=== PATIENT | male | born 1960 | race Caucasian/White ===

== ENCOUNTER 2020-08-22 20:15 | Inpatient (IN) | payer BC ==
[2020-08-22] MEDS ORDERED: METHYLPREDNISOLONE 125 MG INJ ONE (21:18)
[2020-08-22] MEDS ORDERED: NA CHLORIDE 0.9% 1,000 ML ONE (21:18)
[2020-08-22 21:34] LABS: Absolute Lymphocytes (CBC) 0.7 K/uL (0.7-4.9); Basophils % 0.1 % (0-1.3); Hematocrit 41.4 % (39.6-49.0); Lymphocytes % 8.8 % (15.3-44.8); MPV 8.3 fL (7.6-11.3)
[2020-08-22 21:42] LABS: Protime INR 1.1
[2020-08-22 21:56] LABS: ALT/SGPT 90 U/L (12-78); AST/SGOT 77 U/L (15-37); Albumin 3.4 g/dL (3.4-5.0); Alkaline Phosphatase 59 U/L (45-117); BUN Blood Urea Nitrogen 35 mg/dL (7-18); Bicarbonate 23 mmol/L (21-32); Bilirubin Direct 0.2 mg/dL (0-0.2); Bilirubin Total 0.9 mg/dL (0.2-1.0); Ferritin 1630.1 ng/mL (26-388); Glucose Level 177 mg/dL (74-106); Potassium 3.5 mmol/L (3.5-5.1); Protein, Total 7.5 g/dL (6.4-8.2); Sodium Level 137 mmol/L (136-145); Troponin (Emerg Dept Use Only) < 0.02 ng/mL (0.0-0.045)
[2020-08-22 22:19] LABS: SARS-COV-2 RT PCR POSITIVE (NEGATIVE)
[2020-08-22] MEDS ORDERED: Levofloxacin 750mg IV 750 MG/150 ML BAG IV ONE (23:11)
--- NOTE | 2020-08-23 00:35 | ER ---
Nurse's Notes [facility] Name: Loyd Sanchez Age: 59 yrs Sex: Male : 1960 Arrival Date: 08/22/2020 Time: 20:27 Bed 17 Private MD: Diagnosis: Coronavirus infection, unspecified;Pneumonia, unspecified organism;Dyspnea, unspecified Presentation: 08/22 20:27 Chief complaint: EMS states: pt experiencing sob, cough weakness, malaise, body aches, zb and fever. tested covid postive 4 days ago. oxygen level in low 90's without NS. completed z pack yesterday as prophylactic pt received it from his primary physician. Coronavirus screen: Client presents with at least one sign or symptom that may indicate coronavirus-19. Standard/surgical mask placed on the client. Provider contacted for isolation considerations. Ebola Screen: No symptoms or risks identified at this time. Initial Sepsis Screen: Does the patient meet any 2 criteria? RR > 20 per min. No. Patient's initial sepsis screen is negative. Does the patient have a suspected source of infection? Yes: Other: possible covid. Risk Assessment: Do you want to hurt yourself or someone else? Patient reports no desire to harm self or others. Onset of symptoms was August 22, 2020. 20:27 Acuity: ANTHONY 3 zb 20:27 Method Of Arrival: EMS: [facility] zb Triage Assessment: 21:17 General: Appears in no apparent distress. uncomfortable, Behavior is calm, cooperative, zb appropriate for age, Reports fever for > 3 days, feeling ill for > 3 days, fatigue for >3 days, Denies chills. Pain: Denies pain. EENT: No signs and/or symptoms were reported regarding the EENT system. Neuro: Level of Consciousness is awake, alert, obeys commands, Oriented to person, place, time, situation. Cardiovascular: Heart tones S1 S2 present Capillary refill < 3 seconds in bilateral fingers Patient's skin is warm and dry. Pulses are all present. Rhythm is regular. Respiratory: Reports shortness of breath at rest cough that is non-productive. Respiratory: Airway is patent Respiratory effort is even, unlabored, Respiratory pattern is symmetrical, tachypnea Breath sounds are diminished in right middle lobe, left lower lobe and right lower lobe. GI: Abdomen is round non-distended, Bowel sounds present X 4 quads. Abd is soft and non tender X 4 quads. Reports diarrhea, nausea, pt reports loss of taste and smell. : No signs and/or symptoms were reported regarding the genitourinary system. Derm: Skin is intact, is healthy with good turgor, Skin is dry, Skin is flushed, Skin temperature is warm. Musculoskeletal: Circulation, motion, and sensation intact. Capillary refill < 3 seconds, in bilateral fingers. Range of motion:. Historical: - Allergies: 20:42 No Known Allergies; zb - Home Meds: 20:42 Vitamin C Oral [Active]; Zinc Sulfate Oral [Active]; melatonin 10 mg Oral cap [Active]; zb Xarelto oral oral [Active]; Pepcid Oral [Active]; zpack [Active]; Flovent Inhl [Active]; - PMHx: 20:42 Diabetes - NIDDM; Hypertension; zb - Immunization history:: Adult Immunizations up to date. - Social history:: Smoking status: Patient denies any tobacco usage or history of. - Family history:: not pertinent. - Hospitalizations: : No recent hospitalization is reported. Screenin:42 Abuse screen: Denies threats or abuse. Denies injuries from another. Nutritional zb screening: No deficits noted. Tuberculosis screening: No symptoms or risk factors identified. Fall Risk None identified. Assessment: 20:30 Reassessment: see triage note. zb 21:30 Reassessment: Patient appears in no apparent distress at this time. Patient and/or zb family updated on plan of care and expected duration. Pain level reassessed. Patient is alert, oriented x 3, equal unlabored respirations, skin warm/dry/pink. spoke to patient . notified of POC. pt appear calm. no c/o at this time. 22:30 Reassessment: Patient appears in no apparent distress at this time. Patient and/or zb family updated on plan of care and expected duration. Pain level reassessed. Patient is alert, oriented x 3, equal unlabored respirations, skin warm/dry/pink. pt resting. no c/o at this time. remains on 2L of oxygen via NC. 23:30 Reassessment: Patient appears in no apparent distress at this time. Patient and/or zb family updated on plan of care and expected duration. Pain level reassessed. Patient is alert, oriented x 3, equal unlabored respirations, skin warm/dry/pink. pt c/o dehydration and mouth dryness notified provider. cleared for PO water. water provided to patient. RR remain elevated. 08/23 01:47 Reassessment: Patient and/or family updated on plan of care and expected duration. Pain ll2 level reassessed. Patient is alert, oriented x 3, equal unlabored respirations, skin warm/dry/pink. 01:50 Reassessment: attempted to give report, advised that receiving nurse is currently on ll2 lunch and she would call back. 02:24 Reassessment: Patient and/or family updated on plan of care and expected duration. Pain ll2 level reassessed. Patient is alert, oriented x 3, equal unlabored respirations, skin warm/dry/pink. report given to SILVERIO chow. Vital Signs: 08/22 20:27 BP 133 / 83; Pulse 96; Resp 27; Temp 100.1; Pulse Ox 97% 2 lpm ; Weight 97.98 kg; zb Height 5 ft. 9 in. (175.26 cm); 21:17 Pulse Ox 90% on R/A; zb 21:30 BP 151 / 86; Pulse 92; Resp 24; Pulse Ox 98% 2 lpm ; zb 22:30 BP 145 / 75; Pulse 83; Resp 25; Pulse Ox 95% on 2 lpm NC; zb 23:30 BP 145 / 75; Pulse 84; Resp 26; Pulse Ox 95% 2 lpm ; zb 08/23 00:30 BP 140 / 79; Pulse 81; Resp 32; Pulse Ox 95% on 2 lpm NC; ll2 01:49 BP 136 / 74; Pulse 75; Resp 30; Pulse Ox 97% on 2 lpm NC; ll2 08/22 20:27 Body Mass Index 31.90 (97.98 kg, 175.26 cm) zb ED Course: 08/22 20:27 Patient arrived in ED. zb 20:27 Andi Marr MD is Attending Physician. rn 20:27 Carolin Ochoa RN is Primary Nurse. zb 20:35 Triage completed. zb 20:42 Patient has correct armband on for positive identification. Fall risk band placed. zb Placed in gown. Side rails up X 1. Side rails up X2. pvc monitor on. Pulse ox on. NIBP on. Door closed. Noise minimized. Warm blanket given. 20:43 Antipyretic given from triage as ordered by the ER provider. zb 21:03 Inserted saline lock: 20 gauge in left forearm, using aseptic technique. Blood ca1 collected. 21:03 Initial lab(s) drawn, by me, sent to lab. First set of blood cultures drawn by me, ca1 COVID swab sent to lab. Flu and/or RSV swab sent to lab. 21:13 CXR XRAY In Process Unspecified. EDMS 23:23 CT Chest For PE Angio In Process Unspecified. EDMS 08/23 00:13 Tried to initiate transfer at [facility] with Teodora. She stated that they were at capacity tt3 at all campuses but still took pt information. Information was passed on to Dr. Marr. 00:33 Vaibhav Rivero DO is Hospitalizing Provider. rn 02:27 No provider procedures requiring assistance completed. Patient admitted, IV remains in ll2 place. Administered Medications: 08/22 21:20 Drug: SOLU-Medrol 125 mg Route: IVP; Site: left forearm; zb 23:54 Follow up: Response: No adverse reaction zb 21:21 Drug: NS 0.9% 1000 ml Route: IV; Rate: 1000 ml; Site: left forearm; zb 23:54 Follow up: Response: No adverse reaction; IV Status: Completed infusion; IV Intake: zb 1000ml 23:45 Drug: LevaQUIN 750 mg Volume: 150 ml; Route: IVPB; Infused Over: 90 mins; Site: left zb forearm; Intake: 23:54 IV: 1000ml; Total: 1000ml. zb Outcome: 08/23 00:34 Decision to Hospitalize by Provider. rn 02:27 Admitted to Med/surg accompanied by tech, via stretcher, with oxygen, Report called to ll2 silverio chow 02:28 Condition: stable ll2 02:28 Instructed on the need for admit. 02:28 Patient left the ED. ll2 Signatures: Dispatcher [employer] EDMS Andi Marr MD MD rn Acob, Deysi RN RN ca1 Keren Latham RN RN ll2 Flaquito Wolf tt3 Carolin Ochoa RN RN zb Corrections: (The following items were deleted from the chart) 08/22 21:17 20:27 BP 133 / 83; Pulse 96bpm; Resp 23bpm; Pulse Ox 97% 2 lpm; Temp 100.1F; 97.98 kg; zb Height 5 ft. 9 in.; BMI: 31.9; zb 21:58 21:17 Respiratory: Airway is patent Respiratory effort is even, unlabored, Respiratory zb pattern is symmetrical, tachypnea zb 08/23 01:49 00:30 BP 140 / 79; Pulse 81bpm; Resp 32bpm; Pulse Ox 95% RA; ll2 ll2
--- NOTE | 2020-08-23 00:35 | EDPHYS ---
Physician Documentation [facility] Name: Loyd Sanchez Age: 59 yrs Sex: Male : 1960 Arrival Date: 08/22/2020 Time: 20:27 Bed 17 Private MD: ED Physician Andi Marr HPI: 08/22 20:49 This 59 yrs old Male presents to ER via EMS with complaints of cough, sob, rn weakness. 20:49 The patient has shortness of breath at rest, with light activity. Onset: The rn symptoms/episode began/occurred 8 day(s) ago. Duration: The symptoms are continuous. The patient's shortness of breath is aggravated by coughing, is alleviated by nothing. Associated signs and symptoms: Pertinent positives: productive cough, fever, Pertinent negatives: hemoptysis, loss of consciousness. Severity of symptoms: At their worst the symptoms were moderate in the emergency department the symptoms are unchanged. The patient has not experienced similar symptoms in the past. The patient has been recently seen by a physician:. Reports 8 days ago felt sick, seen by pcp, told likely has COVID, tested and was positive, patient presumed positive, got worse recently with cough and sob. EMS reports O2 90%, improved with albuterol treatment. Already on xarelto, although patient does not know why. Is diabetic. Reports not eating or drinking lately due to anorexia and loss of taste/smell. Feels dehydrated. Given IVF by EMS. . Historical: - Allergies: 20:42 No Known Allergies; zb - Home Meds: 20:42 Vitamin C Oral [Active]; Zinc Sulfate Oral [Active]; melatonin 10 mg Oral cap [Active]; zb Xarelto oral oral [Active]; Pepcid Oral [Active]; zpack [Active]; Flovent Inhl [Active]; - PMHx: 20:42 Diabetes - NIDDM; Hypertension; zb - Immunization history:: Adult Immunizations up to date. - Social history:: Smoking status: Patient denies any tobacco usage or history of. - Family history:: not pertinent. - Hospitalizations: : No recent hospitalization is reported. ROS: 20:49 Constitutional: + fever and chills Eyes: Negative for injury, pain, redness, and internal grinder tender, Cardiovascular: Negative for chest pain, palpitations, and edema, Respiratory: + sob and cough Abdomen/GI: Negative for abdominal pain, nausea, vomiting, diarrhea, and constipation, MS/Extremity: Negative for injury and deformity, Skin: Negative for injury, rash, and discoloration, Neuro: Negative for numbness, tingling, and seizure Exam: 20:49 Constitutional: This is a well developed, well nourished patient who is awake, alertm rn mild respiratory distress Head/Face: Normocephalic, atraumatic. Eyes: Pupils equal round and reactive to light, extra-ocular motions intact. Lids and lashes normal. Conjunctiva and sclera are non-icteric and not injected. Cornea within normal limits. Periorbital areas with no swelling, redness, or edema. ENT: dry MM, no stridor Cardiovascular: Regular rate and rhythm. No pulse deficits. Respiratory: + mild tachypnea, diminished at bases Abdomen/GI: Soft, non-tender Skin: Warm, dry MS/ Extremity: Pulses equal, no cyanosis. Neuro: Awake and alert, GCS 15 21:11 ECG was reviewed by the Attending Physician. rn Vital Signs: 20:27 BP 133 / 83; Pulse 96; Resp 27; Temp 100.1; Pulse Ox 97% 2 lpm ; Weight 97.98 kg; zb Height 5 ft. 9 in. (175.26 cm); 21:17 Pulse Ox 90% on R/A; zb 21:30 BP 151 / 86; Pulse 92; Resp 24; Pulse Ox 98% 2 lpm ; zb 22:30 BP 145 / 75; Pulse 83; Resp 25; Pulse Ox 95% on 2 lpm NC; zb 23:30 BP 145 / 75; Pulse 84; Resp 26; Pulse Ox 95% 2 lpm ; zb 08/23 00:30 BP 140 / 79; Pulse 81; Resp 32; Pulse Ox 95% on 2 lpm NC; ll2 01:49 BP 136 / 74; Pulse 75; Resp 30; Pulse Ox 97% on 2 lpm NC; ll2 08/22 20:27 Body Mass Index 31.90 (97.98 kg, 175.26 cm) zb MDM: 08/22 20:27 Patient medically screened. rn 21:07 ED course: Took course of abx this past week. . rn 08/23 00:28 Differential diagnosis: pneumonia, Pneumothorax pulmonary edema, Pulmonary Embolism rn HALIMA pneumonia. Data reviewed: vital signs, nurses notes, lab test result(s), EKG, radiologic studies, CT scan, plain films, and as a result, I will admit patient. Counseling: I had a detailed discussion with the patient and/or guardian regarding: the historical points, exam findings, and any diagnostic results supporting the discharge/admit diagnosis, lab results, radiology results, the need for further work-up and treatment in the hospital. Response to treatment: There is no appreciated change of the patient's symptoms at this time, and as a result, I will admit patient. Admission orders: after a detailed discussion of the patient's condition and case, the admit orders are written by me. ED course: Attempted transfer to [facility] per patient request due to insurance reasons and BCBS not accepted here, [facility] states at capacity and unable to celeste transfer. Notified patient of this and will admit to hospitalist service. . 08/22 20:29 Order name: LFT's; Complete Time: 21:58 rn 08/22 20:29 Order name: Blood Culture Adult (2) rn 08/22 20:29 Order name: BMP; Complete Time: :58 rn 08/22 20:29 Order name: C-Reactive Protein; Complete Time: :58 rn 08/22 20:29 Order name: CBC with Diff; Complete Time: 21:58 rn 08/22 20:29 Order name: D-Dimer; Complete Time: :58 rn 08/22 20:29 Order name: Ferritin; Complete Time: :58 rn 08/22 20:29 Order name: Lactate; Complete Time: 21:58 rn 08/22 20:29 Order name: Procalcitonin; Complete Time: 21:58 rn 08/22 20:29 Order name: PT-INR; Complete Time: :58 rn 08/22 20:29 Order name: Ptt, Activated; Complete Time: :58 rn 08/22 20:29 Order name: Troponin (emerg Dept Use Only); Complete Time: 21:58 rn 08/22 20:29 Order name: CXR XRAY rn 08/22 21:49 Order name: CT Chest For PE Angio rn 08/22 22:20 Order name: COVID-19/FLU A+B; Complete Time: 22:23 EDMS 08/23 01:43 Order name: Basic Metabolic Panel EDMS 08/23 01:43 Order name: Basic Metabolic Panel EDMS 08/23 01:43 Order name: C-Reactive Protein EDMS 08/23 01:43 Order name: C-Reactive Protein EDMS 08/23 01:43 Order name: CBC with Automated Diff EDMS 08/23 01:43 Order name: CBC with Automated Diff EDMS 08/23 01:43 Order name: Ferritin EDMS 08/23 01:43 Order name: Ferritin EDMS 08/23 01:43 Order name: Hemoglobin A1c EDMS 08/23 01:43 Order name: Hemoglobin A1c EDMS 08/23 01:43 Order name: Magnesium EDMS 08/23 01:43 Order name: Magnesium EDMS 08/23 02:16 Order name: Lactate Sepsis 2 HR Follow-up EDMS 08/22 20:29 Order name: EKG; Complete Time: 20:30 rn 08/22 20:29 Order name: Cardiac monitoring; Complete Time: 20:43 rn 08/22 20:29 Order name: Droplet/Contact Precautions; Complete Time: 20:43 rn 08/22 20:29 Order name: EKG - Nurse/Tech; Complete Time: 20:57 rn 08/22 20:29 Order name: IV Start; Complete Time: 20:57 rn 08/22 20:29 Order name: Labs collected and sent; Complete Time: 20:57 rn 08/22 20:29 Order name: O2 Per Protocol; Complete Time: 20:43 rn 08/22 20:29 Order name: O2 Sat Monitoring; Complete Time: 20:43 rn 08/23 01:43 Order name: CONS Physician Consult EDFL EC/05 21:11 Rate is 92 beats/min. Rhythm is regular. QRS Mitchell is Normal. MI interval is normal. QRS rn interval is normal. QT interval is normal. No Q waves. T waves are Normal. No ST changes noted. Clinical impression: Normal sinus rhythm, no ischemia. Interpreted by me. Reviewed by me. Administered Medications: 21:20 Drug: SOLU-Medrol 125 mg Route: IVP; Site: left forearm; zb 23:54 Follow up: Response: No adverse reaction zb 21:21 Drug: NS 0.9% 1000 ml Route: IV; Rate: 1000 ml; Site: left forearm; zb 23:54 Follow up: Response: No adverse reaction; IV Status: Completed infusion; IV Intake: zb 1000ml 23:45 Drug: LevaQUIN 750 mg Volume: 150 ml; Route: IVPB; Infused Over: 90 mins; Site: left zb forearm; Disposition: 08/23/20 00:34 Hospitalization ordered by Vaibhav Rivero for Inpatient Admission. Preliminary diagnosis are Coronavirus infection, unspecified, Pneumonia, unspecified organism, Dyspnea, unspecified. - Bed requested for Telemetry/MedSurg (Inpatient). - Status is Inpatient Admission. ll2 - Condition is Stable. - Problem is new. - Symptoms are unchanged. Signatures: Dispatcher [employer] EDFL Susanna Doshi RN RN Andi Marr MD MD rn Linscombe, Lacie, RN RN ll2 Carolin Ochoa RN RN zpranav Corrections: (The following items were deleted from the chart) 20:57 20:49 Constitutional: + fever and chills Eyes: Negative for injury, pain, redness, and internal grinder tender, Cardiovascular: Negative for chest pain, palpitations, and edema, Respiratory: Negative for shortness of breath, cough, wheezing, and pleuritic chest pain, Abdomen/GI: Negative for abdominal pain, nausea, vomiting, diarrhea, and constipation, MS/Extremity: Negative for injury and deformity, Skin: Negative for injury, rash, and discoloration, Neuro: Negative for numbness, tingling, and seizure rn 21:33 20:30 CORONAVIRUS+MR.LAB.BRZ ordered. [facility] EDFL 21:33 20:30 Influenza Screen (A \T\ B)+BA.LAB.BRZ ordered. [facility] 08/23 01:47 00:34 Hospitalization Ordered by Vaibhav Rivero DO for Inpatient Admission. Preliminary mw diagnosis is Coronavirus infection, unspecified; Pneumonia, unspecified organism; Dyspnea, unspecified. Bed requested for Telemetry/MedSurg (Inpatient). Status is Inpatient Admission. Condition is Stable. Problem is new. Symptoms are unchanged. rn 02:28 01:47 08/23/2020 00:34 Hospitalization Ordered by Vaibhav Rivero DO for Inpatient ll2 Admission. Preliminary diagnosis is Coronavirus infection, unspecified; Pneumonia, unspecified organism; Dyspnea, unspecified. Bed requested for Telemetry/MedSurg (Inpatient). Status is Inpatient Admission. Condition is Stable. Problem is new. Symptoms are unchanged. mw
[2020-08-23] MEDS ORDERED: ONDANSETRON 4 MG/2 ML VIAL IV PRN (01:40)
[2020-08-23] MEDS ORDERED: ACETAMINOPHEN 500 MG TAB PO PRN (01:40)
--- NOTE | 2020-08-23 02:25 | P.HP ---
Certification for Inpatient Patient admitted to: Observation With expected LOS: <2 Midnights Patient will require the following post-hospital care: None Practitioner: I am a practitioner with admitting privileges, knowledge of patient current condition, hospital course, and medical plan of care. Services: Services provided to patient in accordance with Admission requirements found in Title 42 Section 412.3 of the Code of Federal Regulations <Attila Carrera - Last Filed: 08/23/20 02:21> Patient admitted to: Observation <Vaibhav Rivero - Last Filed: 08/23/20 07:50> Patient History Date of Service: 08/23/20 Primary Care Provider: Dr. Keys Reason for admission: COVID Pneumonia History of Present Illness: 59-year-old male with history of diabetes mellitus type 2, hypertension, hyperlipidemia presents the emergency department for 3 days of shortness of breath. Patient was evaluated in the emergency room and up testing positive for COVID, patient unaware of where he contracted the illness. Patient tachypneic with respiratory rate around 30s and oxygen saturations around 90% on room air. Initial CRP level 75, ferritin 1630. Patient given IV steroids in the emergency department, ED provider wishes to admit patient for further evaluation and management. Patient had called EMS for shortness of breath and requested that he was taken to a different facility as this facility is no longer accepting [facility], other nearby facilities were on diversion and would not accept patient. Transfer to alternative acute care facilities was attempted in the emergency department but no beds were available, for that reason patient will need to be admitted to our facility. 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 - Family History Family History: Reviewed- Non-Contributory - Social History Smoking Status: Never smoker Alcohol use: Yes CD- Drugs: No Caffeine use: No Place of Residence: Home <Attila Carrera - Last Filed: 08/23/20 02:21> Date of Service: 08/23/20 Home medications list reviewed: No - Past Medical/Surgical History Diabetic: Yes <Vaibhav Rivero - Last Filed: 08/23/20 07:50> Allergies No Known Allergies Allergy (Verified 08/23/20 04:28) Review of Systems 10-point ROS is otherwise unremarkable General: Weakness, Malaise Respiratory: Cough, Dry, Shortness of Breath <Attila Carrera - Last Filed: 08/23/20 02:21> Physical Examination - Physical Exam General: Alert, In no apparent distress HEENT: Atraumatic, PERRLA, Mucous membr. moist/pink Neck: Supple, 2+ carotid pulse no bruit, No LAD Respiratory: Clear to auscultation bilaterally, Normal air movement Cardiovascular: Regular rate/rhythm, Normal S1 S2 Gastrointestinal: Normal bowel sounds, No tenderness Musculoskeletal: No tenderness Integumentary: No rashes Neurological: Normal speech, Normal strength at 5/5 x4 extr, Normal tone, Normal affect - Studies Laboratory Data (last 24 hrs) 08/22/20 21:01: PT 13.0 H, INR 1.10, APTT 27.8 08/22/20 21:01: WBC 7.4, Hgb 14.5, Hct 41.4, Plt Count 210 08/22/20 21:01: Sodium 137, Potassium 3.5, BUN 35 H, Creatinine 1.34 H, Glucose 177 H, Total Bilirubin 0.9, AST 77 H, ALT 90 H, Alkaline Phosphatase 59 <Attila Carrera - Last Filed: 08/23/20 02:21> - Studies Laboratory Data (last 24 hrs) 08/22/20 21:01: PT 13.0 H, INR 1.10, APTT 27.8 08/22/20 21:01: WBC 7.4, Hgb 14.5, Hct 41.4, Plt Count 210 08/22/20 21:01: Sodium 137, Potassium 3.5, BUN 35 H, Creatinine 1.34 H, Glucose 177 H, Total Bilirubin 0.9, AST 77 H, ALT 90 H, Alkaline Phosphatase 59 <Vaibhav Rivero - Last Filed: 08/23/20 07:50> Assessment and Plan - Plan Assessment COVID pneumonia with hypoxia Diabetes mellitus type 2 Hypertension Hyperlipidemia Plan COVID pneumonia with hypoxia: Trends CRP levels, IV steroids, oral supplements. Pulmonology consult in place, supplemental oxygen as needed, iron daily room air saturations. DVT prophylaxis with Lovenox 40 mg subcutaneous once daily. Diabetes mellitus type 2: A.c. HS Accu-Cheks, sliding scale insulin therapy. Hypertension: Obtain and continue home medications. Hyperlipidemia: Obtain and continue home medications. Discharge Plan: Home Plan to discharge in: 24 Hours - Advance Directives Does patient have a Living Will: No Does patient have a Durable POA for Healthcare: No - Code Status/Comfort Care Code Status Assessed: Yes (Full code) Critical Care: No Time Spent Managing Pts Care (In Minutes): 55 <Attila Carrera - Last Filed: 08/23/20 02:21> - Plan Case discussed in detail with nurse practitioner. Agree with plan of care. Recheck ferritin and CRP. Continue IV steroids in oral supplements. Patient on DVT prophylaxis. Will discuss with pulmonology. Anticipate improvement over the next 24 hr with possible discharge as early as tomorrow. Please see note for details. <Vaibhav Rivero - Last Filed: 08/23/20 07:50>
[2020-08-23] MEDS: PANTOPRAZOLE 40MG TABLET PO SCH (06:32)
[2020-08-23] MEDS ORDERED: BENZONATATE 100 MG CAP PO PRN (07:53)
--- NOTE | 2020-08-23 07:53 | P.PN ---
Subjective Date of Service: 08/23/20 Primary Care Provider: Dr. Keys Chief Complaint: COVID Pneumonia Subjective: Improving (Still with mild tachypnea. Patient on the 2 L per nasal cannula.) Physical Examination - Vital Signs Temperature: 98.3 F Blood Pressure: 149/75 Pulse: 77 Respirations: 20 Pulse Ox (%): 95 - Physical Exam General: Alert, In no apparent distress, Oriented x3, Cooperative HEENT: Atraumatic Neck: Supple Respiratory: Other (Patient on 2 L per nasal cannula) Cardiovascular: Normal pulses, Regular rate/rhythm Gastrointestinal: No guarding Neurological: Normal speech, Normal strength at 5/5 x4 extr, Normal tone, Normal affect - Studies Laboratory Data (last 24 hrs) 08/22/20 21:01: PT 13.0 H, INR 1.10, APTT 27.8 08/22/20 21:01: WBC 7.4, Hgb 14.5, Hct 41.4, Plt Count 210 08/22/20 21:01: Sodium 137, Potassium 3.5, BUN 35 H, Creatinine 1.34 H, Glucose 177 H, Total Bilirubin 0.9, AST 77 H, ALT 90 H, Alkaline Phosphatase 59 Medications List Reviewed: Yes Assessment & Plan Discharge Plan: Home Plan to discharge in: 24 Hours Physician Review Additional Text: Assessment Bilateral COVID 19 pneumonia with hypoxia Diabetes mellitus type 2 Hypertension Hyperlipidemia Acute renal insufficiency likely mild dehydration Plan Bilateral COVID 19 pneumonia with hypoxia: Patient appears improved. Continue IV steroids and supplementation. Patient on 2 L per nasal cannula. Ferritin and CRP reviewed. Recheck ferritin and CRP today. Will discuss with pulmonology. Anticipate improvement over the next 24 hr with possible discharge tomorrow on home oxygen. Patient on DVT prophylaxis. Continue monitor closely. Await recommendations by pulmonology. Diabetes mellitus type 2: A.c. HS Accu-Cheks, sliding scale insulin therapy in place. Will check A1c. Hypertension: Restart home medication Hyperlipidemia: Restart home medication Acute renal insufficiency likely mild dehydration: Encourage oral intake. Will monitor lab closely. Time Spent Managing Pts Care (In Minutes): 55
[2020-08-23] MEDS ORDERED: INFLUENZA VACCINE (for 3y+) 0.5 ML DOSE IMVAC ONE (08:00)
--- NOTE | 2020-08-23 08:03 | RAD REPORT ---
EXAM DESCRIPTION: RAD - Chest Single View - 08/22/2020 9:12 pm CLINICAL HISTORY: possible COVID;Cough;Dyspnea COMPARISON: Portable February 2020 TECHNIQUE: AP portable chest image was obtained 08/22/2020 9:12 pm . FINDINGS: Lung volumes are very low. Bilateral interstitial and alveolar opacities are present worse on the left. Pattern is consistent with a COVID-19 pneumonia. Heart and vasculature are normal. No m easurable pleural effusion and no pneumothorax. No acute bony abnormality seen. No acute aortic findi ngs suspected. IMPRESSION: Significant bilateral airspace opacification, left greater than right. Pattern is consis tent with COVID-19 pneumonia.
[2020-08-23 08:33] LABS: C-Reactive Protein 93.7 mg/L (<3.00); Ferritin 1668.2 ng/mL (26-388)
[2020-08-23] MEDS: INSULIN -REGULAR HUMAN 50 UNIT/0.5 ML ML SQ SCH ×4 (08:46→21:00)
[2020-08-23] MEDS: MULTIVIT W/ MINERAL TAB PO SCH (08:47)
[2020-08-23] MEDS: ASPIRIN EC 81 MG TAB PO SCH (08:47)
[2020-08-23] MEDS: LOSARTAN POTASSIUM 50 MG TABLET PO SCH (08:47)
[2020-08-23] MEDS: VITAMIN D 1000 UNIT TAB PO SCH (08:47)
[2020-08-23] MEDS: icosapent ethyL 1 GM CAP PO SCH ×2 (08:48→20:00)
[2020-08-23] MEDS: METOPROLOL TAR 25 MG TAB PO SCH (08:48)
[2020-08-23] MEDS: METHYLPREDNISOLONE 40 MG INJ IV SCH ×2 (08:48→17:16)
[2020-08-23] MEDS: ENOXAPARIN 40 MG/0.4 ML SQ SCH (08:48)
[2020-08-23] MEDS: MAGNESIUM OXIDE 400 MG TAB PO SCH (08:49)
[2020-08-23] MEDS: hydroCHLOROthiazide 25 MG TAB PO SCH (08:49)
[2020-08-23] MEDS: ASCORBIC ACID 500 MG TABLET PO SCH ×3 (08:49→20:00)
[2020-08-23] MEDS: ZINC SULFATE 220 MG CAP PO SCH (08:55)
[2020-08-23] MEDS ORDERED: POTASSIUM CL SA 10 MEQ TAB PO ONE (09:00)
--- NOTE | 2020-08-23 11:42 | RAD REPORT ---
EXAM DESCRIPTION: CT - Chest For Pe Angio - 08/23/2020 6:35 am CLINICAL HISTORY: 59 years Male sob, dyspnea, COVID COMPARISON: None. TECHNIQUE: Contiguous axial images obtained through the chest during the infusion of IV contrast. Re formatted images obtained. MIP reformatted images obtained. This exam was performed according to our department optimization program which includes automated exp osure control, adjustment of the mA and/or kv according to patient size and/or use of iterative recon struction technique. FINDINGS: The spleen is enlarged measuring 16 cm in length. Small hiatal hernia. No pericardial effusion. There are a couple of slightly prominent mediastinal lymph nodes. No evidence for thoracic aortic dissection. No pulmonary emboli are identified. There are fairly diffuse patchy groundglass infiltrates consistent with covid pneumonia. No pleural e ffusions. No pneumothorax. 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 There are m ild degenerative changes of the left shoulder and in the spine. There is mild compression fracture de formity at T8 which appears chronic. IMPRESSION: No pulmonary emboli are identified. There are diffuse patchy groundglass infiltrates consistent with covid pneumonia. The spleen is enlarged. Electronically signed by: Miguel Angel Alexis MD 08/23/2020 12:05 AM COMMUNICATION MANAGER Due to temporary technical issues with the PACS/Fluency reporting system, reports are being signed by the in house radiologist without review as a courtesy to ensure prompt reporting. The interpreting r adiologist is fully responsible for the content of the report.
--- NOTE | 2020-08-23 17:33 | EKG ---
Test Date: 2020-08-22 Test Time: 20:51:46 Reptile Farmer: BAKARI MEASUREMENT RESULTS: Intervals: Rate: 92 TX: 144 QRSD: 98 QT: 354 QTc: 437 Addison: P: 49 TX: 144 QRS: -25 T: 49 INTERPRETIVE STATEMENTS: Normal sinus rhythm Possible Left atrial enlargement Borderline ECG No previous ECG available for comparison Electronically Signed On 08-23-20 17:31:42 ESTHETICIAN AND MANAGER [employer]PA by Sourav Higgins
[2020-08-23] MEDS: DIPHENOX/ATROP SULF 1 TAB PO PRN (18:22)
[2020-08-23] MEDS: GLUCERNA SHAKE 237 ML CAN PO SCH (20:00)
[2020-08-23] MEDS: LACTOBACILLUS/ACIDOPHILUS TAB PO SCH (20:00)
[2020-08-23] MEDS: ATORVASTATIN 40 MG TAB PO SCH (20:00)
[2020-08-24] MEDS: METHYLPREDNISOLONE 40 MG INJ IV SCH ×3 (00:08→16:45)
[2020-08-24 03:47] LABS: Absolute Lymphocytes (CBC) 0.9 K/uL (0.7-4.9); Basophils % 0.1 % (0-1.3); Hematocrit 39.5 % (39.6-49.0); Lymphocytes % 8.3 % (15.3-44.8); MPV 8.4 fL (7.6-11.3); RBC Red Blood Cell Count 4.79 M/uL (4.33-5.43)
[2020-08-24 04:20] LABS: Magnesium 2.3 mg/dL (1.8-2.4); Potassium 3.8 mmol/L (3.5-5.1)
[2020-08-24] MEDS ORDERED: POTASSIUM CL SA 10 MEQ TAB PO ONE (04:23)
[2020-08-24] MEDS: PANTOPRAZOLE 40MG TABLET PO SCH (05:10)
[2020-08-24 07:01] LABS: C-Reactive Protein 53.4 mg/L (<3.00); Ferritin 1929.9 ng/mL (26-388)
[2020-08-24 07:44] LABS: Blood Morphology Comment NOT SEEN (NOT SEEN); Platelet Estimate ADEQ
[2020-08-24] MEDS: MAGNESIUM OXIDE 400 MG TAB PO SCH (09:00)
[2020-08-24] MEDS: ZINC SULFATE 220 MG CAP PO SCH (09:04)
[2020-08-24] MEDS: ASCORBIC ACID 500 MG TABLET PO SCH ×3 (09:04→20:33)
[2020-08-24] MEDS: VITAMIN D 1000 UNIT TAB PO SCH (09:04)
[2020-08-24] MEDS: ASPIRIN EC 81 MG TAB PO SCH (09:04)
[2020-08-24] MEDS: LACTOBACILLUS/ACIDOPHILUS TAB PO SCH ×3 (09:04→20:33)
[2020-08-24] MEDS: icosapent ethyL 1 GM CAP PO SCH ×2 (09:05→20:32)
[2020-08-24] MEDS: MULTIVIT W/ MINERAL TAB PO SCH (09:05)
[2020-08-24] MEDS: LOSARTAN POTASSIUM 50 MG TABLET PO SCH (09:06)
[2020-08-24] MEDS: hydroCHLOROthiazide 25 MG TAB PO SCH (09:06)
[2020-08-24] MEDS: METOPROLOL TAR 25 MG TAB PO SCH (09:06)
[2020-08-24] MEDS: ENOXAPARIN 40 MG/0.4 ML SQ SCH (09:06)
[2020-08-24] MEDS: INSULIN -REGULAR HUMAN 50 UNIT/0.5 ML ML SQ SCH ×4 (09:07→23:44)
[2020-08-24] MEDS: GLUCERNA SHAKE 237 ML CAN PO SCH ×2 (09:48→20:33)
[2020-08-24] MEDS ORDERED: GLUCAGON 1 MG/VIAL IM PRN (14:21)
[2020-08-24] MEDS ORDERED: D50W 25 GM/50 ML SYRINGE IV PRN (14:21)
--- NOTE | 2020-08-24 14:23 | P.PN ---
Subjective Date of Service: 08/24/20 Primary Care Provider: Dr. Keys Chief Complaint: COVID Pneumonia Subjective: Improving Physical Examination - Vital Signs Temperature: 97.5 F Blood Pressure: 118/67 Pulse: 65 Respirations: 16 Pulse Ox (%): 88 - Physical Exam General: Alert HEENT: Atraumatic Neck: Supple Respiratory: Other (Patient on 4 L per nasal cannula. Less tachypnea noted) Cardiovascular: Normal pulses Neurological: Normal speech, Normal strength at 5/5 x4 extr, Normal tone, Normal affect - Studies Medications List Reviewed: Yes Assessment & Plan Discharge Plan: Home Plan to discharge in: 24 Hours Physician Review Additional Text: Assessment Bilateral COVID 19 pneumonia with hypoxia Diabetes mellitus type 2 Hypertension Hyperlipidemia Acute renal insufficiency likely mild dehydration Diarrhea Plan Bilateral COVID 19 pneumonia with hypoxia: Patient still on 4 L per nasal cannula. Continue monitor ferritin and CRP. Continue to wean down. Will discuss with pulmonology. Will try to ambulate today. If still tachypneic may need 1 more day. Will monitor closely. Anticipate improvement over the next 24 hr. Diabetes mellitus type 2: A.c. HS Accu-Cheks, sliding scale insulin therapy in place. A1c 6.5. Patient with diabetes. Will start low-dose Lantus for better diabetic control at this time Hypertension: Continue home medication Hyperlipidemia: Continue home medication Acute renal insufficiency likely mild dehydration: Encourage oral intake. Will monitor lab closely. Diarrhea: Will provide lactobacillus Will check C diff. Will provide medication. Will monitor this closely. Time Spent Managing Pts Care (In Minutes): 55
[2020-08-24] MEDS: ATORVASTATIN 40 MG TAB PO SCH (20:33)
[2020-08-24] MEDS ORDERED: INSULIN GLARGINE 100 UNITS/ML SQ SCH (21:00)
[2020-08-25] MEDS: METHYLPREDNISOLONE 40 MG INJ IV SCH ×3 (00:14→18:05)
[2020-08-25] MEDS: PANTOPRAZOLE 40MG TABLET PO SCH (05:34)
[2020-08-25 07:09] LABS: Ferritin 1861.3 ng/mL (26-388); Potassium 3.5 mmol/L (3.5-5.1)
[2020-08-25 08:48] LABS: Albumin 2.9 g/dL (3.4-5.0); Bilirubin Direct 0.2 mg/dL (0-0.2); Protein, Total 6.9 g/dL (6.4-8.2)
--- NOTE | 2020-08-25 08:58 | RAD REPORT ---
EXAM DESCRIPTION: RAD - Chest Single View - 08/25/2020 6:36 am CLINICAL HISTORY: follow up COVID Chest pain. COMPARISON: Chest Single View dated 08/22/2020; Chest Pa And Lat (2 Views) dated 03/09/2020; CHEST PA A ND LAT 2 VIEW dated 08/26/2011; Chest For Pe Angio dated 08/22/2020 FINDINGS: Portable technique limits examination quality. Since 08/22/2020 study, mild improvement in lung aeration is seen. Moderate bilateral airspace opacit ies persist, slightly worse on the left. The heart is normal in size. No displaced fractures. IMPRESSION: Mild improvement lung aeration noted since comparative study.
[2020-08-25] MEDS: MAGNESIUM OXIDE 400 MG TAB PO SCH (09:00)
[2020-08-25] MEDS: icosapent ethyL 1 GM CAP PO SCH (09:00)
[2020-08-25] MEDS: VITAMIN D 1000 UNIT TAB PO SCH (10:40)
[2020-08-25] MEDS: LOSARTAN POTASSIUM 50 MG TABLET PO SCH (10:40)
[2020-08-25] MEDS: ASPIRIN EC 81 MG TAB PO SCH (10:40)
[2020-08-25] MEDS: LACTOBACILLUS/ACIDOPHILUS TAB PO SCH ×3 (10:40→22:12)
[2020-08-25] MEDS: FAMOTIDINE 20 MG TAB PO SCH ×2 (10:40→22:12)
[2020-08-25] MEDS: ENOXAPARIN 40 MG/0.4 ML SQ SCH (10:41)
[2020-08-25] MEDS: ZINC SULFATE 220 MG CAP PO SCH (10:41)
[2020-08-25] MEDS: METOPROLOL TAR 25 MG TAB PO SCH ×2 (10:41→10:42)
[2020-08-25] MEDS: ASCORBIC ACID 500 MG TABLET PO SCH ×3 (10:41→22:12)
[2020-08-25] MEDS: hydroCHLOROthiazide 25 MG TAB PO SCH (10:41)
[2020-08-25] MEDS: MULTIVIT W/ MINERAL TAB PO SCH (10:42)
[2020-08-25] MEDS: INSULIN -REGULAR HUMAN 50 UNIT/0.5 ML ML SQ SCH ×4 (10:43→22:17)
[2020-08-25] MEDS: GLUCERNA SHAKE 237 ML CAN PO SCH ×2 (10:45→22:14)
[2020-08-25] MEDS ORDERED: BENZONATATE 100 MG CAP PO PRN (11:38)
[2020-08-25] MEDS ORDERED: MELATONIN 5 MG TABLET PO SCH (11:45)
--- NOTE | 2020-08-25 11:45 | P.PN ---
Subjective Date of Service: 08/25/20 Primary Care Provider: Dr. Keys Chief Complaint: COVID Pneumonia Subjective: Other (Slow improvement noted) Physical Examination - Vital Signs Temperature: 98.1 F Blood Pressure: 132/68 Pulse: 64 Respirations: 24 Pulse Ox (%): 90 - Physical Exam General: Alert, In no apparent distress, Cooperative HEENT: Atraumatic Neck: Supple Respiratory: Other (Patient on 6 L per nasal cannula) Cardiovascular: Normal pulses, Regular rate/rhythm Neurological: Normal speech, Normal strength at 5/5 x4 extr, Normal tone, Normal affect - Studies Medications List Reviewed: Yes Assessment & Plan Discharge Plan: Home Plan to discharge in: 48 Hours Physician Review Additional Text: Assessment Bilateral COVID 19 pneumonia with hypoxia Diabetes mellitus type 2 Hypertension Hyperlipidemia Acute renal insufficiency likely mild dehydration Diarrhea Plan Bilateral COVID 19 pneumonia with hypoxia: Chest x-ray shows improvement. Patient requiring 6 L per nasal cannula. Encourage ambulation, encourage incentive spirometer. What physical therapy ambulate. Respiratory to decrease oxygen requirement. Discussed the possibility of adding Remdesivir but LFTs are elevated. Will discuss in provide information on convalescent plasma. If the patient continues to improve likely no need for either. Will continue discuss with pulmonology. Need diabetes better controlled. Will adjust insulin. Anticipate improvement over the next 48 hr. Diabetes mellitus type 2: A.c. HS Accu-Cheks, sliding scale insulin therapy in place. A1c 6.5. Patient with diabetes. Continue to adjust Lantus for better diabetic control at this time Hypertension: Continue home medication Hyperlipidemia: Continue home medication. Discontinue Lipitor due to elevated liver function Acute renal insufficiency likely mild dehydration: Encourage oral intake. Will monitor lab closely. Diarrhea: Will provide lactobacillus Will check C diff. Improved. Elevated liver function: Continue to monitor. Will check hepatitis panel. Discontinue Lipitor Time Spent Managing Pts Care (In Minutes): 55
[2020-08-25] MEDS ORDERED: FUROSEMIDE 20 MG/ 2ML VIAL IV ONE (12:02)
--- NOTE | 2020-08-25 12:04 | P.CNS ---
Date of Consult: 08/25/20 Primary Care Provider: Dr. Keys Chief Complaint: COVID Pneumonia History of Present Illness: Patient is 59 years of age multiple medical problems admitted with worsening dyspnea for the past 3 Dc was tested for ramirez virus he had low saturations feeling short of breath and was admitted from the emergency room he still requiring high concentrations of oxygen Allergies No Known Allergies Allergy (Verified 08/23/20 04:28) Home Medications: Aspirin 81 mg PO DAILY 08/23/20 Atorvastatin Calcium [Lipitor] 40 mg PO BEDTIME 08/23/20 Cholecalciferol (Vitamin D3) [Vitamin D3] 2,000 unit PO DAILY 08/23/20 Icosapent Ethyl [Vascepa] 1 gm PO BID 08/23/20 Losartan/Hydrochlorothiazide [Losartan-Hctz 100-25 mg Tab] 1 each PO DAILY 08/23/20 Magnesium Oxide [Mag 0X Tab] 400 mg PO DAILY 08/23/20 Metformin HCl 1,000 mg PO BID 08/23/20 Metoprolol Tartrate [Lopressor] 25 mg PO DAILY 08/23/20 Multivit-Min/FA/Lycopen/Lutein [Centrum Silver Tablet] 1 tab PO DAILY 08/23/20 Omeprazole 20 mg PO DAILY 08/23/20 - Past Medical/Surgical History Diabetic: Yes -: Hypertension -: Hyperlipidemia -: Diabetes mellitus type 2 -: Hernia repair Psychosocial/ Personal History: 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 - Family History mom Medical History: Cancer - Social History Alcohol use: No CD- Drugs: No Caffeine use: Yes Place of Residence: Home Review of Systems General: Weakness Respiratory: Cough, Shortness of Breath Physical Examination Temp Pulse Resp BP Pulse Ox 98.1 F 64 24 H 132/68 90 L 08/25/20 11:45 08/25/20 11:45 08/25/20 11:45 08/25/20 11:45 08/25/20 11:45 General: Alert, Oriented x3, Mild distress Respiratory: Clear to auscultation bilaterally, Diminished Cardiovascular: No edema, Normal S1 S2 - Problems (1) 2019 novel coronavirus–infected pneumonia (NCIP)#8211;infected pneumonia (NCIP) Current Visit: Yes Status: Acute Plan: Patient is 59 years of age admitted with pneumonia due to ramirez virus patient's renal function is slightly worse is ferritin levels are 1800 CT scan shows bilateral changes consistent with ramirez virus pneumonia continue with steroids aggressive management of his blood sugars possible discharge in 1 or 2 day his agree withRemdesmir I have added some Lasix
[2020-08-25 12:36] LABS: C.diff Antigen/Toxin Ag neg : Tox neg (NEG : NEG)
[2020-08-25] MEDS ORDERED: Remdesivir 200 MG in NA CHLORIDE 0.9% 250 ML IV ONE (13:00)
[2020-08-25] MEDS ORDERED: D50W 25 GM/50 ML SYRINGE IV PRN (17:34)
[2020-08-25] MEDS ORDERED: D50W 25 GM/50 ML VIAL IV PRN (17:35)
[2020-08-25] MEDS ORDERED: INSULIN GLARGINE 100 UNITS/ML SQ SCH (21:00)
[2020-08-26 04:41] LABS: Absolute Lymphocytes (CBC) 0.9 K/uL (0.7-4.9); Basophils % 0.1 % (0-1.3); Hematocrit 41.4 % (39.6-49.0); Lymphocytes % 7.4 % (15.3-44.8); MPV 8.7 fL (7.6-11.3); RBC Red Blood Cell Count 4.98 M/uL (4.33-5.43)
[2020-08-26] MEDS: METHYLPREDNISOLONE 40 MG INJ IV SCH ×3 (04:45→17:36)
[2020-08-26 05:11] LABS: Bilirubin Direct 0.2 mg/dL (0-0.2); Bilirubin Total 0.8 mg/dL (0.2-1.0); C-Reactive Protein 11.1 mg/L (<3.00); Ferritin 1789.7 ng/mL (26-388); Magnesium 2.4 mg/dL (1.8-2.4); Potassium 3.9 mmol/L (3.5-5.1); Protein, Total 6.9 g/dL (6.4-8.2)
[2020-08-26] MEDS: PANTOPRAZOLE 40MG TABLET PO SCH ×2 (05:23→17:37)
[2020-08-26] MEDS: INSULIN -REGULAR HUMAN 50 UNIT/0.5 ML ML SQ SCH ×4 (07:30→22:02)
[2020-08-26] MEDS ORDERED: Remdesivir 100 MG in NA CHLORIDE 0.9% 250 ML IV SCH (09:00)
--- NOTE | 2020-08-26 09:44 | P.PN ---
Subjective Date of Service: 08/26/20 Primary Care Provider: Dr. Keys Chief Complaint: COVID Pneumonia Subjective: Improving (Patient improving. On 6 L) Physical Examination - Vital Signs Temperature: 96.9 F Blood Pressure: 143/72 Pulse: 52 Respirations: 28 Pulse Ox (%): 93 - Physical Exam General: Alert, In no apparent distress, Oriented x3, Cooperative HEENT: Atraumatic Neck: Supple Respiratory: Other (Patient on 6 L. No respiratory distress noted) Cardiovascular: Normal pulses Gastrointestinal: No guarding Neurological: Normal speech, Normal strength at 5/5 x4 extr, Normal tone, Normal affect - Studies Medications List Reviewed: Yes Assessment & Plan Discharge Plan: Home Plan to discharge in: 48 Hours Physician Review Additional Text: Assessment Bilateral COVID 19 pneumonia with hypoxia Diabetes mellitus type 2 Hypertension Hyperlipidemia Acute renal insufficiency likely mild dehydration Diarrhea Plan Bilateral COVID 19 pneumonia with hypoxia: Yesterday chest x-ray showed improvement. Currently on 6 L. Continue to wean off. Remdesivir was given yesterday but noted LFTs elevated today. Case discussed with pulmonology. Will discontinue Remdesivir. Physical therapy to ambulate. Encourage oral intake. Continue to adjust medication. Wean off oxygen. Will discuss with respiratory. Anticipate improvement over the next 48 hr. Diabetes mellitus type 2: A.c. HS Accu-Cheks, sliding scale insulin therapy in place. A1c 6.5. Patient with diabetes. Continue to adjust Lantus for better diabetic control at this time Hypertension: Continue home medication Hyperlipidemia: Continue home medication. Discontinue Lipitor due to elevated liver function Acute renal insufficiency likely mild dehydration: Encourage oral intake. Will monitor lab closely. Diarrhea: Will provide lactobacillus Will check C diff. Improved. Elevated liver function: Continue to monitor. Will check hepatitis panel. Discontinue Lipitor. Will discontinue Remdesivir. Time Spent Managing Pts Care (In Minutes): 55
[2020-08-26] MEDS ORDERED: POTASSIUM CL SA 10 MEQ TAB PO ONE (11:00)
[2020-08-26] MEDS: ENOXAPARIN 40 MG/0.4 ML SQ SCH (11:21)
[2020-08-26] MEDS: LACTOBACILLUS/ACIDOPHILUS TAB PO SCH ×3 (11:22→22:08)
[2020-08-26] MEDS: LOSARTAN POTASSIUM 50 MG TABLET PO SCH (11:22)
[2020-08-26] MEDS: hydroCHLOROthiazide 25 MG TAB PO SCH (11:22)
[2020-08-26] MEDS: MULTIVIT W/ MINERAL TAB PO SCH (11:22)
[2020-08-26] MEDS: FAMOTIDINE 20 MG TAB PO SCH ×2 (11:22→22:09)
[2020-08-26] MEDS: METOPROLOL TAR 25 MG TAB PO SCH (11:23)
[2020-08-26] MEDS: MAGNESIUM OXIDE 400 MG TAB PO SCH (11:23)
[2020-08-26] MEDS: ZINC SULFATE 220 MG CAP PO SCH (11:23)
[2020-08-26] MEDS: ASCORBIC ACID 500 MG TABLET PO SCH ×3 (11:23→22:10)
[2020-08-26] MEDS: ASPIRIN EC 81 MG TAB PO SCH (11:23)
[2020-08-26] MEDS: VITAMIN D 1000 UNIT TAB PO SCH (11:32)
[2020-08-26] MEDS: GLUCERNA SHAKE 237 ML CAN PO SCH ×3 (11:36→22:08)
[2020-08-26] MEDS: NYSTATIN 500,000 UNIT/5 ML UDC PO SCH ×3 (14:54→22:09)
[2020-08-26] MEDS ORDERED: INSULIN GLARGINE 100 UNITS/ML SQ SCH (21:00)
[2020-08-27] MEDS: METHYLPREDNISOLONE 40 MG INJ IV SCH ×3 (01:56→17:11)
[2020-08-27 07:27] LABS: Absolute Lymphocytes (CBC) 0.7 K/uL (0.7-4.9); Basophils % 0.2 % (0-1.3); Hematocrit 43.2 % (39.6-49.0); Lymphocytes % 6.2 % (15.3-44.8); MPV 8.7 fL (7.6-11.3); RBC Red Blood Cell Count 5.19 M/uL (4.33-5.43)
--- NOTE | 2020-08-27 07:34 | P.PN ---
Subjective Date of Service: 08/27/20 Primary Care Provider: Dr. Keys Chief Complaint: COVID Pneumonia Subjective: Other (Slow improvement noted. Patient feels better.) Physical Examination - Vital Signs Temperature: 97.3 F Blood Pressure: 133/60 Pulse: 58 Respirations: 20 Pulse Ox (%): 93 - Physical Exam General: Alert, In no apparent distress, Cooperative HEENT: Atraumatic Neck: Supple Respiratory: Other (Currently on 6 L per nasal cannula. No significant distress noted.) Cardiovascular: Normal pulses Gastrointestinal: No guarding Neurological: Normal speech, Normal strength at 5/5 x4 extr, Normal tone, Normal affect - Studies Medications List Reviewed: Yes Assessment & Plan Discharge Plan: Home Plan to discharge in: 48 Hours Physician Review Additional Text: Assessment Bilateral COVID 19 pneumonia with hypoxia Diabetes mellitus type 2 Hypertension Hyperlipidemia Acute renal insufficiency likely mild dehydration Diarrhea Plan Bilateral COVID 19 pneumonia with hypoxia: Patient remains on 6 L per nasal cannula. Continue IV Solu-Medrol. Remdesivir was discontinued due to elevated liver function test. Patient given option of convalescent plasma. Will provide more education. Patient may decide on plasma if no significant change. Continue supplementation. Continue to wean off oxygen. Will discuss with pulmonology. Encourage ambulation. Encourage incentive spirometer. Will increase Lantus for better control. Continue other medications. Anticipate improvement over the next 48 hr. I will turn the service over to the hospitalist team tomorrow. I will go over the plan of care with him. Diabetes mellitus type 2: A.c. HS Accu-Cheks, sliding scale insulin therapy in place. A1c 6.5. Patient with diabetes. Lantus increased again today. Continue to adjust Lantus for better diabetic control at this time Hypertension: Continue home medication Hyperlipidemia: Continue home medication. Lipitor discontinued due to elevated liver function. Acute renal insufficiency likely mild dehydration: Encourage oral intake. Will monitor lab closely. Diarrhea: Patient on lactobacillus. C diff negative. Overall improved. Elevated liver function: Continue to monitor. Hepatitis panel pending. Lipitor and Remdesivir have been discontinued. Continue to monitor liver function. Time Spent Managing Pts Care (In Minutes): 55
[2020-08-27 08:20] LABS: C-Reactive Protein 6.33 mg/L (<3.00); Ferritin 1602.8 ng/mL (26-388); Magnesium 2.3 mg/dL (1.8-2.4); Potassium 3.6 mmol/L (3.5-5.1)
[2020-08-27] MEDS ORDERED: POTASSIUM CL SA 10 MEQ TAB PO ONE (09:00)
[2020-08-27] MEDS: LACTOBACILLUS/ACIDOPHILUS TAB PO SCH ×3 (10:07→21:57)
[2020-08-27] MEDS: VITAMIN D 1000 UNIT TAB PO SCH (10:07)
[2020-08-27] MEDS: LOSARTAN POTASSIUM 50 MG TABLET PO SCH (10:07)
[2020-08-27] MEDS: MULTIVIT W/ MINERAL TAB PO SCH (10:08)
[2020-08-27] MEDS: NYSTATIN 500,000 UNIT/5 ML UDC PO SCH ×4 (10:08→21:57)
[2020-08-27] MEDS: ENOXAPARIN 40 MG/0.4 ML SQ SCH (10:08)
[2020-08-27] MEDS: ZINC SULFATE 220 MG CAP PO SCH (10:08)
[2020-08-27] MEDS: hydroCHLOROthiazide 25 MG TAB PO SCH (10:09)
[2020-08-27] MEDS: FAMOTIDINE 20 MG TAB PO SCH ×2 (10:10→21:58)
[2020-08-27] MEDS: ASPIRIN EC 81 MG TAB PO SCH (10:10)
[2020-08-27] MEDS: ASCORBIC ACID 500 MG TABLET PO SCH ×3 (10:11→21:58)
[2020-08-27] MEDS: PANTOPRAZOLE 40MG TABLET PO SCH (10:11)
[2020-08-27] MEDS: MAGNESIUM OXIDE 400 MG TAB PO SCH (10:11)
[2020-08-27] MEDS: GLUCERNA SHAKE 237 ML CAN PO SCH ×3 (10:16→21:26)
[2020-08-27] MEDS: INSULIN -REGULAR HUMAN 50 UNIT/0.5 ML ML SQ SCH ×4 (10:52→21:41)
[2020-08-27] MEDS: INSULIN GLARGINE 100 UNITS/ML SQ SCH ×2 (10:53→21:31)
--- NOTE | 2020-08-27 11:43 | RAD REPORT ---
EXAM DESCRIPTION: RAD - Chest Single View - 08/27/2020 7:55 am CLINICAL HISTORY: follow up COVID Chest pain. COMPARISON: Chest Single View dated 08/25/2020; Chest Single View dated 08/22/2020; Chest Pa And Lat (2 Views) dated 03/09/2020; CHEST PA AND LAT 2 VIEW dated 08/26/2011 FINDINGS: Portable technique limits examination quality. Since 08/25/2020, mild worsening is seen in bilateral pulmonary opacities related to underlying viral bronchitis. The heart is normal in size. No displaced fractures. IMPRESSION: Mild worsening in lung aeration seen since prior study.
[2020-08-27] MEDS: DIPHENOX/ATROP SULF 1 TAB PO PRN (13:12)
--- NOTE | 2020-08-27 14:58 | P.PN ---
Subjective Date of Service: 08/27/20 Primary Care Provider: Dr. Keys Chief Complaint: COVID Pneumonia Subjective: Improving (Still feeling weak. and SOB) Review of Systems General: Weakness Respiratory: Shortness of Breath Physical Examination - Vital Signs Temperature: 97.8 F Blood Pressure: 155/73 Pulse: 59 Respirations: 32 Pulse Ox (%): 87 - Physical Exam General: Alert, Oriented x3 Neck: Supple Respiratory: Clear to auscultation bilaterally Cardiovascular: No edema, Regular rate/rhythm - Studies Medications List Reviewed: Yes Assessment & Plan - Problems (Diagnosis) (1) 2019 novel coronavirus–infected pneumonia (NCIP)#8211;infected pneumonia (NCIP) Status: Acute Plan: No sig change.requiring 6 l of O2. Decrease solumederol/ Control BS/add Eliquis/ prone position CXRy poss mild worseing. Leigh nelson very high
[2020-08-27] MEDS: APIXABAN 5 MG TABLET PO SCH (21:57)
[2020-08-28] MEDS: METHYLPREDNISOLONE 40 MG INJ IV SCH ×3 (00:44→17:44)
[2020-08-28 03:56] LABS: Absolute Lymphocytes (CBC) 0.5 K/uL (0.7-4.9); Basophils % 0.2 % (0-1.3); Hematocrit 43.1 % (39.6-49.0); Lymphocytes % 3.6 % (15.3-44.8); MPV 8.8 fL (7.6-11.3); RBC Red Blood Cell Count 5.23 M/uL (4.33-5.43)
[2020-08-28 04:22] LABS: Albumin 2.9 g/dL (3.4-5.0); Bilirubin Total 1.2 mg/dL (0.2-1.0); C-Reactive Protein 4.29 mg/L (<3.00); Magnesium 2.2 mg/dL (1.8-2.4); Potassium 3.9 mmol/L (3.5-5.1); Protein, Total 6.9 g/dL (6.4-8.2)
[2020-08-28 07:54] LABS: Platelet Estimate ADEQ
[2020-08-28 07:55] LABS: Blood Morphology Comment NOT SEEN (NOT SEEN)
[2020-08-28] MEDS: MAGNESIUM OXIDE 400 MG TAB PO SCH (09:00)
[2020-08-28] MEDS ORDERED: POTASSIUM CL SA 10 MEQ TAB PO ONE (09:00)
[2020-08-28] MEDS: VITAMIN D 1000 UNIT TAB PO SCH (09:44)
[2020-08-28] MEDS: LOSARTAN POTASSIUM 50 MG TABLET PO SCH (09:44)
[2020-08-28] MEDS: APIXABAN 5 MG TABLET PO SCH ×2 (09:44→22:17)
[2020-08-28] MEDS: LACTOBACILLUS/ACIDOPHILUS TAB PO SCH ×3 (09:44→22:17)
[2020-08-28] MEDS: ASCORBIC ACID 500 MG TABLET PO SCH ×3 (09:45→22:17)
[2020-08-28] MEDS: hydroCHLOROthiazide 25 MG TAB PO SCH (09:45)
[2020-08-28] MEDS: METOPROLOL TAR 25 MG TAB PO SCH (09:45)
[2020-08-28] MEDS: NYSTATIN 500,000 UNIT/5 ML UDC PO SCH ×4 (09:45→22:17)
[2020-08-28] MEDS: MULTIVIT W/ MINERAL TAB PO SCH (09:45)
[2020-08-28] MEDS: ASPIRIN EC 81 MG TAB PO SCH (09:45)
[2020-08-28] MEDS: ZINC SULFATE 220 MG CAP PO SCH (09:46)
[2020-08-28] MEDS: INSULIN GLARGINE 100 UNITS/ML SQ SCH ×2 (09:46→22:15)
[2020-08-28] MEDS: GLUCERNA SHAKE 237 ML CAN PO SCH ×3 (09:48→22:19)
[2020-08-28] MEDS: INSULIN -REGULAR HUMAN 50 UNIT/0.5 ML ML SQ SCH ×4 (09:52→22:16)
[2020-08-28] MEDS: FAMOTIDINE 20 MG TAB PO SCH ×2 (10:08→22:17)
[2020-08-28] MEDS ORDERED: PNEUMOCOCCAL VACCINE 0.5 ML IMVAC ONE (11:00)
[2020-08-28] MEDS ORDERED: ALBUTEROL INHALER 60 PUFF/8 GM IH PRN (18:11)
[2020-08-29] MEDS: METHYLPREDNISOLONE 40 MG INJ IV SCH ×3 (01:43→16:57)
[2020-08-29 03:56] LABS: Absolute Lymphocytes (CBC) 0.4 K/uL (0.7-4.9); Basophils % 0.2 % (0-1.3); Hematocrit 42.4 % (39.6-49.0); Lymphocytes % 3.2 % (15.3-44.8); MPV 8.8 fL (7.6-11.3); RBC Red Blood Cell Count 5.16 M/uL (4.33-5.43)
[2020-08-29 04:06] LABS: Albumin 2.9 g/dL (3.4-5.0); Bilirubin Total 1.4 mg/dL (0.2-1.0); C-Reactive Protein 7.93 mg/L (<3.00); Ferritin 1395.5 ng/mL (26-388); Magnesium 2.4 mg/dL (1.8-2.4); Phosphorus 4.6 mg/dL (2.5-4.9); Potassium 4.4 mmol/L (3.5-5.1); Protein, Total 6.8 g/dL (6.4-8.2)
[2020-08-29] MEDS: ASCORBIC ACID 500 MG TABLET PO SCH ×3 (08:28→21:30)
[2020-08-29] MEDS: APIXABAN 5 MG TABLET PO SCH ×2 (08:28→21:30)
[2020-08-29] MEDS: LOSARTAN POTASSIUM 50 MG TABLET PO SCH (08:28)
[2020-08-29] MEDS: ASPIRIN EC 81 MG TAB PO SCH (08:29)
[2020-08-29] MEDS: VITAMIN D 1000 UNIT TAB PO SCH (08:29)
[2020-08-29] MEDS: ZINC SULFATE 220 MG CAP PO SCH (08:29)
[2020-08-29] MEDS: METOPROLOL TAR 25 MG TAB PO SCH (08:29)
[2020-08-29] MEDS: LACTOBACILLUS/ACIDOPHILUS TAB PO SCH ×3 (08:29→21:30)
[2020-08-29] MEDS: FAMOTIDINE 20 MG TAB PO SCH ×2 (08:29→21:30)
[2020-08-29] MEDS: INSULIN -REGULAR HUMAN 50 UNIT/0.5 ML ML SQ SCH ×4 (08:30→21:05)
[2020-08-29] MEDS: NYSTATIN 500,000 UNIT/5 ML UDC PO SCH ×4 (08:31→21:29)
[2020-08-29] MEDS: INSULIN GLARGINE 100 UNITS/ML SQ SCH ×2 (08:31→21:11)
[2020-08-29] MEDS: MAGNESIUM OXIDE 400 MG TAB PO SCH (08:31)
[2020-08-29] MEDS: GLUCERNA SHAKE 237 ML CAN PO SCH ×2 (08:32→13:02)
--- NOTE | 2020-08-29 10:04 | P.PN ---
Subjective Date of Service: 08/28/20 Patient continues to do well with no new complaints. Clinically improving. Start to feel better. Still requiring 5-6 L of oxygen for support; gets really tachypneic on ambulation. Review of Systems 10-point ROS is otherwise unremarkable Physical Examination - Vital Signs Temperature: 99.2 F Blood Pressure: 115/61 Pulse: 59 Respirations: 18 Pulse Ox (%): 93 - Physical Exam General: Alert, In no apparent distress, Oriented x3 Respiratory: Clear to auscultation bilaterally, Normal air movement Cardiovascular: Regular rate/rhythm, Normal S1 S2 Gastrointestinal: Normal bowel sounds, No tenderness Musculoskeletal: No tenderness Integumentary: No rashes Neurological: Normal speech, Normal tone, Normal affect Lymphatics: No axilla or inguinal lymphadenopathy - Studies Medications List Reviewed: Yes Assessment & Plan - Problems (Diagnosis) (1) 2019 novel coronavirus–infected pneumonia (NCIP)#8211;infected pneumonia (NCIP) Current Visit: Yes Status: Acute - Advance Directives Does patient have a Living Will: No Does patient have a Durable POA for Healthcare: No
[2020-08-29] MEDS: MULTIVIT W/ MINERAL TAB PO SCH (10:31)
--- NOTE | 2020-08-29 12:06 | P.PN ---
Subjective Date of Service: 08/29/20 Primary Care Provider: Dr. Keys Chief Complaint: COVID Pneumonia Patient is not doing well is still very hypoxic on 6 L on nasal cannula oxygen will try high-flow today feels very weak Review of Systems General: Weakness Respiratory: Shortness of Breath Physical Examination - Vital Signs Temperature: 99.2 F Blood Pressure: 115/61 Pulse: 59 Respirations: 18 Pulse Ox (%): 93 - Studies Medications List Reviewed: Yes Assessment & Plan - Problems (Diagnosis) (1) Pneumonia due to 2019 novel coronavirus Current Visit: Yes Status: Acute Plan: Patient is 59 years of age admitted with pneumonia due to ramirez virus is not doing well significantly hypoxic change to high-flow or BiPAP blood sugars elevated aggressive control liver function tests are improving ferritin level still elevated patient's renal function is slightly worse the be some prerenal c omponent add sitagliptin increase Lantus white count is declining
[2020-08-29] MEDS: SITAGLIPTIN PHOS 100 MG TAB PO SCH (12:55)
[2020-08-29] MEDS: clonazePAM 0.5 MG TAB PO PRN (16:57)
[2020-08-29] MEDS ORDERED: TEMAZEPAM 15 MG CAP PO SCH (21:00)
[2020-08-29] MEDS: TEMAZEPAM 15 MG CAP PO SCH (21:29)
[2020-08-30] MEDS: METHYLPREDNISOLONE 40 MG INJ IV SCH ×3 (01:15→17:36)
[2020-08-30] MEDS: GLUCERNA SHAKE 237 ML CAN PO SCH ×4 (04:52→21:40)
[2020-08-30 06:34] LABS: C-Reactive Protein 6.84 mg/L (<3.00); Ferritin 1280.2 ng/mL (26-388); Magnesium 2.5 mg/dL (1.8-2.4); Potassium 4.6 mmol/L (3.5-5.1)
[2020-08-30] MEDS: MAGNESIUM OXIDE 400 MG TAB PO SCH (09:00)
[2020-08-30] MEDS: INSULIN -REGULAR HUMAN 50 UNIT/0.5 ML ML SQ SCH ×4 (09:56→21:41)
[2020-08-30] MEDS: INSULIN GLARGINE 100 UNITS/ML SQ SCH ×2 (09:57→21:43)
[2020-08-30] MEDS: APIXABAN 5 MG TABLET PO SCH ×2 (09:58→20:40)
[2020-08-30] MEDS: NYSTATIN 500,000 UNIT/5 ML UDC PO SCH ×4 (09:58→20:39)
[2020-08-30] MEDS: ASPIRIN EC 81 MG TAB PO SCH (09:58)
[2020-08-30] MEDS: MULTIVIT W/ MINERAL TAB PO SCH (09:58)
[2020-08-30] MEDS: LOSARTAN POTASSIUM 50 MG TABLET PO SCH (09:58)
[2020-08-30] MEDS: VITAMIN D 1000 UNIT TAB PO SCH (09:58)
[2020-08-30] MEDS: SITAGLIPTIN PHOS 100 MG TAB PO SCH (09:59)
[2020-08-30] MEDS: LACTOBACILLUS/ACIDOPHILUS TAB PO SCH ×3 (09:59→20:40)
[2020-08-30] MEDS: FAMOTIDINE 20 MG TAB PO SCH ×2 (10:00→20:39)
[2020-08-30] MEDS: ZINC SULFATE 220 MG CAP PO SCH (10:00)
[2020-08-30] MEDS: ASCORBIC ACID 500 MG TABLET PO SCH ×3 (10:00→20:40)
[2020-08-30] MEDS: METOPROLOL TAR 25 MG TAB PO SCH (10:01)
--- NOTE | 2020-08-30 15:54 | P.PN ---
Subjective Date of Service: 08/30/20 Patient still tachypneic. Still having a hard time with inspiration. Continue monitoring closely Review of Systems 10-point ROS is otherwise unremarkable Physical Examination - Vital Signs Temperature: 97.8 F Blood Pressure: 131/63 Pulse: 66 Respirations: 20 Pulse Ox (%): 98 - Physical Exam General: Alert, In no apparent distress, Oriented x3 Respiratory: Diminished Cardiovascular: Regular rate/rhythm, Normal S1 S2, No murmurs Gastrointestinal: Normal bowel sounds, No tenderness Musculoskeletal: No tenderness Integumentary: No rashes Neurological: Normal speech, Normal tone, Normal affect Lymphatics: No axilla or inguinal lymphadenopathy - Studies Medications List Reviewed: Yes Assessment & Plan - Problems (Diagnosis) (1) 2019 novel coronavirus–infected pneumonia (NCIP)#8211;infected pneumo angela (NCIP) Current Visit: Yes Status: Acute - Plan 1. Continue monitoring patient closely 2. O2 per protocol 3. Pulmonary consultation appreciated 4. Continue monitoring inflammatory markers 5. O2 per protocol 6. GI and DVT prophylaxis - Advance Directives Does patient have a Living Will: No Does patient have a Durable POA for Healthcare: No
[2020-08-30 20:16] LABS: HBsAG Nonreactive (Nonreactive)
[2020-08-30] MEDS: TEMAZEPAM 15 MG CAP PO SCH (20:40)
[2020-08-31] MEDS: METHYLPREDNISOLONE 40 MG INJ IV SCH ×3 (00:25→17:47)
[2020-08-31] MEDS: INSULIN -REGULAR HUMAN 50 UNIT/0.5 ML ML SQ SCH ×4 (07:45→21:16)
[2020-08-31] MEDS: GLUCERNA SHAKE 237 ML CAN PO SCH ×3 (09:00→21:18)
[2020-08-31] MEDS: THIAMINE 200 MG/2 ML INJ IVP SCH ×2 (09:00→21:16)
[2020-08-31] MEDS: MULTIVIT W/ MINERAL TAB PO SCH (09:00)
[2020-08-31] MEDS ORDERED: IVERMECTIN 3 MG TABLET PO ONE (09:30)
[2020-08-31] MEDS: SITAGLIPTIN PHOS 100 MG TAB PO SCH (09:46)
[2020-08-31] MEDS: METOPROLOL TAR 25 MG TAB PO SCH (09:47)
[2020-08-31] MEDS: MAGNESIUM OXIDE 400 MG TAB PO SCH (09:47)
[2020-08-31] MEDS: VITAMIN D 1000 UNIT TAB PO SCH (09:47)
[2020-08-31] MEDS: ZINC SULFATE 220 MG CAP PO SCH (09:47)
[2020-08-31] MEDS: LOSARTAN POTASSIUM 50 MG TABLET PO SCH (09:47)
[2020-08-31] MEDS: NYSTATIN 500,000 UNIT/5 ML UDC PO SCH ×4 (09:47→21:16)
[2020-08-31] MEDS: APIXABAN 5 MG TABLET PO SCH ×2 (09:47→21:16)
[2020-08-31] MEDS: ASPIRIN EC 81 MG TAB PO SCH (09:48)
[2020-08-31] MEDS: ASCORBIC ACID 500 MG TABLET PO SCH ×3 (09:48→21:16)
[2020-08-31] MEDS: FAMOTIDINE 20 MG TAB PO SCH ×2 (09:48→21:15)
[2020-08-31] MEDS: LACTOBACILLUS/ACIDOPHILUS TAB PO SCH ×3 (09:48→21:16)
[2020-08-31] MEDS: INSULIN GLARGINE 100 UNITS/ML SQ SCH ×2 (09:49→21:17)
--- NOTE | 2020-08-31 13:47 | P.PN ---
Subjective Date of Service: 08/31/20 Primary Care Provider: Dr. Keys Chief Complaint: COVID Pneumonia patient is not doing well requiring high concentrations of oxygen his condition has deteriorated since is been in the hospital feeling very weak Review of Systems General: Weakness Respiratory: Shortness of Breath Physical Examination - Vital Signs Temperature: 97.8 F Blood Pressure: 138/67 Pulse: 64 Respirations: 19 Pulse Ox (%): 94 - Studies Medications List Reviewed: Yes Assessment & Plan - Problems (Diagnosis) (1) Pneumonia due to 2019 novel coronavirus Current Visit: Yes Status: Acute Plan: respiratory failure condition worsening 1 dose of ivermectin maximal supplemental doses of multi vitamins patient is on Solu-Medrol labs reviewed CRP is normal ferritin level is still significantly elevated chest x-ray ordered
[2020-08-31] MEDS: TEMAZEPAM 15 MG CAP PO SCH (21:15)
[2020-08-31] MEDS: MELATONIN 5 MG TABLET PO SCH (21:16)
[2020-09-01] MEDS: METHYLPREDNISOLONE 40 MG INJ IV SCH ×3 (00:30→17:00)
--- NOTE | 2020-09-01 07:50 | RAD REPORT ---
EXAM DESCRIPTION: Shay Single View09/01/2020 4:52 am CLINICAL HISTORY: Shortness of breath COMPARISON: August 29 FINDINGS: Worsening in the bilateral pulmonary opacities. Marked left and moderate right pulmonary o pacities are present. IMPRESSION: Worsening in the bilateral pulmonary opacities probably pneumonia
[2020-09-01] MEDS: INSULIN -REGULAR HUMAN 50 UNIT/0.5 ML ML SQ SCH ×4 (08:54→23:31)
[2020-09-01] MEDS: INSULIN GLARGINE 100 UNITS/ML SQ SCH ×2 (08:56→23:33)
[2020-09-01] MEDS: APIXABAN 5 MG TABLET PO SCH ×2 (08:57→23:29)
[2020-09-01] MEDS: ASCORBIC ACID 500 MG TABLET PO SCH ×3 (08:57→23:40)
[2020-09-01] MEDS: NYSTATIN 500,000 UNIT/5 ML UDC PO SCH ×4 (08:57→23:29)
[2020-09-01] MEDS: ZINC SULFATE 220 MG CAP PO SCH (08:58)
[2020-09-01] MEDS: ASPIRIN EC 81 MG TAB PO SCH (08:58)
[2020-09-01] MEDS: LOSARTAN POTASSIUM 50 MG TABLET PO SCH (08:58)
[2020-09-01] MEDS: FAMOTIDINE 20 MG TAB PO SCH ×2 (08:58→23:30)
[2020-09-01] MEDS: MAGNESIUM OXIDE 400 MG TAB PO SCH (08:58)
[2020-09-01] MEDS: METOPROLOL TAR 25 MG TAB PO SCH (08:58)
[2020-09-01] MEDS: VITAMIN D 1000 UNIT TAB PO SCH (08:59)
[2020-09-01] MEDS: SITAGLIPTIN PHOS 100 MG TAB PO SCH (08:59)
[2020-09-01] MEDS: THIAMINE 200 MG/2 ML INJ IVP SCH ×2 (09:00→21:00)
[2020-09-01] MEDS: GLUCERNA SHAKE 237 ML CAN PO SCH ×3 (09:00→23:32)
[2020-09-01] MEDS: MULTIVIT W/ MINERAL TAB PO SCH (09:00)
[2020-09-01] MEDS: LACTOBACILLUS/ACIDOPHILUS TAB PO SCH ×3 (09:01→23:29)
--- NOTE | 2020-09-01 11:51 | P.PN ---
Subjective Date of Service: 08/30/20 Patient still quite tachypneic. Still having a hard time with inspiration. Gets really winded with any movement; requiring high flow at 40L/min with FiO2 at 90% Concerning that he may need to get moved to BiPAP if clinical condition worsens Review of Systems 10-point ROS is otherwise unremarkable Physical Examination - Vital Signs Temperature: 96.2 F Blood Pressure: 150/67 Pulse: 50 Respirations: 18 Pulse Ox (%): 96 - Physical Exam General: Alert, In no apparent distress, Oriented x3 Respiratory: Diminished, Expiratory wheezes Cardiovascular: Regular rate/rhythm, Normal S1 S2, No murmurs Gastrointestinal: Normal bowel sounds, Soft and benign, Non-distended, No tenderness Musculoskeletal: No clubbing, No swelling, No tenderness Neurological: Sensation intact, Cranial nerves 3-12 intact - Studies Medications List Reviewed: Yes Assessment & Plan - Problems (Diagnosis) (1) 2018 novel coronavirus–infected pneumonia (NCIP)#8211;infected pneumonia (NCIP) Current Visit: Yes Status: Acute - Plan Continue with POC as mentioned below 1. Continue monitoring patient closely 2. O2 per protocol; currently on high flow 3. Pulmonary consultation appreciated 4. Continue monitoring inflammatory markers 5. O2 per protocol 6. GI and DVT prophylaxis Discharge Plan: Home Plan to discharge in: Greater than 2 days - Advance Directives Does patient have a Living Will: No Does patient have a Durable POA for Healthcare: No - Code Status/Comfort Care Code Status Assessed: Yes Code Status: Full Code Critical Care: Yes Time Spent Managing PTS Care (In Minutes): 30
--- NOTE | 2020-09-01 11:53 | P.PN ---
Date of Service: 08/31/20 Subjective Patient feels better today. Breathing easier and not as anxious today. Feels like he is better today; Review of Systems 10-point ROS is otherwise unremarkable Physical Examination - Vital Signs reviewed - Physical Exam General: Alert, In no apparent distress, Oriented x3 Respiratory: Diminished, Expiratory wheezes Cardiovascular: Regular rate/rhythm, Normal S1 S2, No murmurs Gastrointestinal: Normal bowel sounds, Soft and benign, Non-distended, No tenderness Musculoskeletal: No clubbing, No swelling, No tenderness Neurological: Sensation intact, Cranial nerves 3-12 intact Assessment & Plan - Problems (Diagnosis) (1) 2019 novel coronavirus–infected pneumonia (NCIP)#8211;infected pneumonia (NCIP) Current Visit: Yes Status: Acute - Plan Continue with POC as mentioned below 1. IV steroids; inhaler therapy; cough medications 2. O2 per protocol; currently on high flow 3. Pulmonary consultation appreciated 4. Continue monitoring inflammatory markers 5. GI and DVT prophylaxis Discharge Plan: Home Plan to discharge in: Greater than 2 days - Advance Directives Does patient have a Living Will: No Does patient have a Durable POA for Healthcare: No - Code Status/Comfort Care Code Status Assessed: Yes Code Status: Full Code Critical Care: Yes Time Spent Managing PTS Care (In Minutes): 30
--- NOTE | 2020-09-01 13:06 | P.PN ---
Subjective Date of Service: 09/01/20 Primary Care Provider: Dr. Keys Chief Complaint: COVID Pneumonia No change patient is still feeling very weak short of breath although his oxygenation seems to be improving Review of Systems General: Weakness Respiratory: Shortness of Breath Physical Examination - Vital Signs Temperature: 99.1 F Blood Pressure: 133/72 Pulse: 56 Respirations: 18 Pulse Ox (%): 97 - Studies Medications List Reviewed: Yes Assessment & Plan - Problems (Diagnosis) (1) Pneumonia due to 2019 novel coronavirus Current Visit: Yes Status: Acute Plan: Respiratory failure continue with maximum vitamin supplementation ivermectin dose pending were mildly elevated
[2020-09-01] MEDS: MELATONIN 5 MG TABLET PO SCH (23:30)
[2020-09-01] MEDS: TEMAZEPAM 15 MG CAP PO SCH (23:39)
[2020-09-02] MEDS: METHYLPREDNISOLONE 40 MG INJ IV SCH ×3 (01:25→16:49)
[2020-09-02 06:55] LABS: Absolute Lymphocytes (CBC) 0.4 K/uL (0.7-4.9); Hematocrit 42.9 % (39.6-49.0); Lymphocytes % 2.9 % (15.3-44.8); MPV 9.6 fL (7.6-11.3); RBC Red Blood Cell Count 5.16 M/uL (4.33-5.43)
[2020-09-02 07:04] LABS: Albumin 2.4 g/dL (3.4-5.0); C-Reactive Protein 10.1 mg/L (<3.00); Magnesium 2.6 mg/dL (1.8-2.4); Phosphorus 4.3 mg/dL (2.5-4.9); Potassium 4.3 mmol/L (3.5-5.1)
[2020-09-02] MEDS: INSULIN -REGULAR HUMAN 50 UNIT/0.5 ML ML SQ SCH ×4 (07:30→21:00)
[2020-09-02] MEDS: VITAMIN D 1000 UNIT TAB PO SCH (08:40)
[2020-09-02] MEDS: SITAGLIPTIN PHOS 100 MG TAB PO SCH (08:40)
[2020-09-02] MEDS: ASCORBIC ACID 500 MG TABLET PO SCH ×3 (08:42→23:04)
[2020-09-02] MEDS: APIXABAN 5 MG TABLET PO SCH ×2 (08:42→23:03)
[2020-09-02] MEDS: LACTOBACILLUS/ACIDOPHILUS TAB PO SCH ×3 (08:42→23:04)
[2020-09-02] MEDS: ASPIRIN EC 81 MG TAB PO SCH (08:43)
[2020-09-02] MEDS: NYSTATIN 500,000 UNIT/5 ML UDC PO SCH ×4 (08:43→23:03)
[2020-09-02] MEDS: GLUCERNA SHAKE 237 ML CAN PO SCH ×3 (08:44→23:05)
[2020-09-02] MEDS: MAGNESIUM OXIDE 400 MG TAB PO SCH (08:44)
[2020-09-02] MEDS: ZINC SULFATE 220 MG CAP PO SCH (08:45)
[2020-09-02] MEDS: INSULIN GLARGINE 100 UNITS/ML SQ SCH ×2 (08:46→23:05)
[2020-09-02] MEDS: LOSARTAN POTASSIUM 50 MG TABLET PO SCH (08:53)
[2020-09-02] MEDS: METOPROLOL TAR 25 MG TAB PO SCH (08:53)
[2020-09-02 09:00] LABS: Blood Morphology Comment NOT SEEN (NOT SEEN); Platelet Estimate ADEQ; White Blood Cell Scan OK (OK)
[2020-09-02] MEDS: THIAMINE 200 MG/2 ML INJ IVP SCH (09:00)
[2020-09-02] MEDS: FAMOTIDINE 20 MG TAB PO SCH ×2 (10:07→23:03)
[2020-09-02] MEDS: THIAMINE HCL 100 MG TABLET PO SCH (10:07)
[2020-09-02] MEDS: MULTIVIT W/ MINERAL TAB PO SCH (10:07)
--- NOTE | 2020-09-02 12:31 | RAD REPORT ---
EXAM DESCRIPTION: RAD - Chest Single View - 09/02/2020 5:50 am CLINICAL HISTORY: pneumonia Chest pain. COMPARISON: Chest Single View dated 09/01/2020; Chest Single View dated 08/27/2020; Chest Single View dated 08/25/2020; Chest Single View dated 08/22/2020 FINDINGS: Portable technique limits examination quality. Moderate bilateral pulmonary opacities are again seen, mildly improved since comparative study. The h eart is normal in size. No displaced fractures. IMPRESSION: Mild improvement in bilateral lung aeration is seen since comparative study.
[2020-09-02] MEDS: TEMAZEPAM 15 MG CAP PO SCH (23:03)
[2020-09-02] MEDS: MELATONIN 5 MG TABLET PO SCH (23:04)
[2020-09-03] MEDS: METHYLPREDNISOLONE 40 MG INJ IV SCH ×3 (01:25→16:07)
[2020-09-03] MEDS: INSULIN -REGULAR HUMAN 50 UNIT/0.5 ML ML SQ SCH ×4 (07:30→21:10)
[2020-09-03 07:52] LABS: Absolute Lymphocytes (CBC) 0.5 K/uL (0.7-4.9); Basophils % 0.5 % (0-1.3); Lymphocytes % 3.1 % (15.3-44.8); MPV 9.8 fL (7.6-11.3); RBC Red Blood Cell Count 5.39 M/uL (4.33-5.43)
[2020-09-03 08:02] LABS: Albumin 2.5 g/dL (3.4-5.0); Bilirubin Total 1.1 mg/dL (0.2-1.0); Ferritin 1250.1 ng/mL (26-388); Potassium 5.4 mmol/L (3.5-5.1); Protein, Total 6.4 g/dL (6.4-8.2)
--- NOTE | 2020-09-03 08:04 | RAD REPORT ---
EXAM DESCRIPTION: RAD - Chest Single View - 09/03/2020 6:24 am CLINICAL HISTORY: pneumonia COMPARISON: Portable September 02 TECHNIQUE: AP portable chest image was obtained 09/03/2020 6:24 am . FINDINGS: Bczl-[id number]-right interstitial and alveolar opacities are again noted. Slight improv ement has occurred. Differential improvement is not as great as that which occurred between the and September 02 studies. Current examination has slight respiratory motion degradation artifact. Heart and vasculature are normal. No measurable pleural effusion and no pneumothorax. No acute bony abnormality seen. No acute aortic findings suspected. IMPRESSION: Continued improvement of the lung parenchymal opacification. Differential improvement is not as great as that which occurred between September 01 and September 02.
[2020-09-03] MEDS: GLUCERNA SHAKE 237 ML CAN PO SCH ×3 (09:00→21:07)
[2020-09-03] MEDS: METOPROLOL TAR 25 MG TAB PO SCH (09:00)
[2020-09-03] MEDS: LOSARTAN POTASSIUM 50 MG TABLET PO SCH (09:00)
[2020-09-03] MEDS: LACTOBACILLUS/ACIDOPHILUS TAB PO SCH ×3 (09:28→21:04)
[2020-09-03] MEDS: VITAMIN D 1000 UNIT TAB PO SCH (09:28)
[2020-09-03] MEDS: SITAGLIPTIN PHOS 100 MG TAB PO SCH (09:28)
[2020-09-03] MEDS: MAGNESIUM OXIDE 400 MG TAB PO SCH (09:29)
[2020-09-03] MEDS: clonazePAM 0.5 MG TAB PO PRN (09:30)
[2020-09-03] MEDS: FAMOTIDINE 20 MG TAB PO SCH ×2 (09:30→21:04)
[2020-09-03] MEDS: ASPIRIN EC 81 MG TAB PO SCH (09:30)
[2020-09-03] MEDS: ZINC SULFATE 220 MG CAP PO SCH (09:30)
[2020-09-03] MEDS: NYSTATIN 500,000 UNIT/5 ML UDC PO SCH ×4 (09:31→21:04)
[2020-09-03] MEDS: THIAMINE HCL 100 MG TABLET PO SCH ×2 (09:32→21:04)
[2020-09-03] MEDS: INSULIN GLARGINE 100 UNITS/ML SQ SCH ×2 (09:32→21:06)
[2020-09-03] MEDS: APIXABAN 5 MG TABLET PO SCH ×2 (09:40→21:04)
[2020-09-03] MEDS: MULTIVIT W/ MINERAL TAB PO SCH (10:00)
[2020-09-03] MEDS: ASCORBIC ACID 500 MG TABLET PO SCH ×3 (10:00→22:56)
[2020-09-03] MEDS ORDERED: IVERMECTIN 3 MG TABLET PO ONE (13:00)
--- NOTE | 2020-09-03 17:41 | P.PN ---
Date of Service: 09/01/20 Subjective Patient continues to improve with no new complaints. His oxygenation is improved slowly. Will continue to monitor him very closely. Review of Systems 10-point ROS is otherwise unremarkable Physical Examination - Vital Signs reviewed - Physical Exam General: Alert, In no apparent distress, Oriented x3 Respiratory: Diminished, Expiratory wheezes Cardiovascular: Regular rate/rhythm, Normal S1 S2, No murmurs Gastrointestinal: Normal bowel sounds, Soft and benign, Non-distended, No tende rness Musculoskeletal: No clubbing, No swelling, No tenderness Neurological: Sensation intact, Cranial nerves 3-12 intact Assessment & Plan - Problems (Diagnosis) (1) 2019 novel coronavirus–infected pneumonia (NCIP)#8211;infected pneumonia (NCIP) Current Visit: Yes Status: Acute (2) Hypoxemia Current Visit: Yes Status: Acute (3) DM-2 Current Visit: Yes Status: Chronic (4) HTN Current Visit: Yes Status: Chronic - Plan Continue with POC as mentioned below 1. IV steroids; inhaler therapy; cough medications 2. O2 per protocol; currently on high flow; slowly wean down the high-flow oxygen 3. Pulmonary consultation appreciated 4. Continue monitoring inflammatory markers 5. GI and DVT prophylaxis - Code Status/Comfort Care Code Status Assessed: Yes Code Status: Full Code Critical Care: Yes Time Spent Managing PTS Care (In Minutes): 30
--- NOTE | 2020-09-03 17:45 | P.PN ---
Subjective Date of Service: 09/02/20 Patient continues to improve. Patient's oxygenation is improving. Continue to monitor patient closely over the next 2-3 days. Review of Systems 10-point ROS is otherwise unremarkable Physical Examination - Vital Signs Temperature: 96.9 F Blood Pressure: 119/63 Pulse: 53 Respirations: 20 Pulse Ox (%): 96 - Physical Exam General: Alert, In no apparent distress, Oriented x3 Respiratory: Diminished, Rhonchi/gurgles Cardiovascular: Regular rate/rhythm, Normal S1 S2, No murmurs Gastrointestinal: Normal bowel sounds, Soft and benign, Non-distended, No tenderness Musculoskeletal: No clubbing, No swelling, No tenderness Neurological: Sensation intact, Cranial nerves 3-12 intact - Studies Medications List Reviewed: Yes Assessment & Plan - Problems (Diagnosis) (1) 2019 novel coronavirus–infected pneumonia (NCIP)#8211;infected pneumonia (NCIP) Current Visit: Yes Status: Acute (2) Hypertension Current Visit: Yes Status: Acute (3) Type 2 diabetes mellitus Current Visit: Yes Status: Acute (4) Hypoxemia Current Visit: Yes Status: Acute - Plan Continue with POC as mentioned below 1. Continue monitoring patient closely 2. O2 per protocol; wean down oxygen 3. Pulmonary consultation appreciated 4. Continue monitoring inflammatory markers 5. Continue out of bed and ambulating; may need physical therapy 6. GI and DVT prophylaxis Discharge Plan: Home Plan to discharge in: Greater than 2 days - Advance Directives Does patient have a Living Will: No Does patient have a Durable POA for Healthcare: No - Code Status/Comfort Care Code Status: Full Code Critical Care: No Time Spent Managing PTS Care (In Minutes): 35
--- NOTE | 2020-09-03 17:47 | P.PN ---
Subjective Date of Service: 09/03/20 Patient's oxygenation is improving. We have him off high-flow oxygen and on nasal cannula. Review of Systems 10-point ROS is otherwise unremarkable Physical Examination - Vital Signs Temperature: 96.9 F Blood Pressure: 119/63 Pulse: 53 Respirations: 20 Pulse Ox (%): 96 - Physical Exam General: Alert, In no apparent distress, Oriented x3 Respiratory: Diminished, Rhonchi/gurgles Cardiovascular: Regular rate/rhythm, Normal S1 S2, No murmurs Gastrointestinal: Normal bowel sounds, Soft and benign, Non-distended, No tenderness Musculoskeletal: No clubbing, No swelling, No tenderness Neurological: Sensation intact, Cranial nerves 3-12 intact - Studies Medications List Reviewed: Yes Assessment & Plan - Problems (Diagnosis) (1) 2019 novel coronavirus–infected pneumonia (NCIP)#8211;infected pneumonia (NCIP) Current Visit: Yes Status: Acute (2) Hypertension Current Visit: Yes Status: Acute (3) Type 2 diabetes mellitus Current Visit: Yes Status: Acute (4) Hypoxemia Current Visit: Yes Status: Acute - Plan Continue with POC as mentioned below 1. Arrange for home oxygen; ambulate and will get physical therapy if needed 2. O2 per protocol; wean down oxygen; placed on nasal cannula 3. Pulmonary consultation appreciated 4. Continue monitoring inflammatory markers 5. Continue out of bed and ambulating; may need physical therapy 6. GI and DVT prophylaxis Discharge Plan: Home Plan to discharge in: Greater than 2 days - Advance Directives Does patient have a Living Will: No Does patient have a Durable POA for Healthcare: No - Code Status/Comfort Care Code Status: Full Code Critical Care: No Time Spent Managing PTS Care (In Minutes): 30
[2020-09-03] MEDS: MELATONIN 5 MG TABLET PO SCH (21:05)
[2020-09-03] MEDS: TEMAZEPAM 15 MG CAP PO SCH (21:05)
[2020-09-04] MEDS: METHYLPREDNISOLONE 40 MG INJ IV SCH ×3 (01:01→16:31)
[2020-09-04 05:37] VITALS: BMI 27.6
[2020-09-04] MEDS: INSULIN -REGULAR HUMAN 50 UNIT/0.5 ML ML SQ SCH ×4 (07:30→20:54)
[2020-09-04] MEDS: FAMOTIDINE 20 MG TAB PO SCH ×2 (07:48→20:54)
[2020-09-04] MEDS: ZINC SULFATE 220 MG CAP PO SCH (07:48)
[2020-09-04] MEDS: ASPIRIN EC 81 MG TAB PO SCH (07:48)
[2020-09-04] MEDS: VITAMIN D 1000 UNIT TAB PO SCH (07:48)
[2020-09-04] MEDS: LACTOBACILLUS/ACIDOPHILUS TAB PO SCH ×3 (07:48→20:54)
[2020-09-04] MEDS: LOSARTAN POTASSIUM 50 MG TABLET PO SCH (07:48)
[2020-09-04] MEDS: METOPROLOL TAR 25 MG TAB PO SCH (07:49)
[2020-09-04] MEDS: NYSTATIN 500,000 UNIT/5 ML UDC PO SCH ×4 (07:49→20:54)
[2020-09-04] MEDS: THIAMINE HCL 100 MG TABLET PO SCH ×2 (07:49→20:54)
[2020-09-04] MEDS: GLUCERNA SHAKE 237 ML CAN PO SCH ×3 (07:51→20:55)
[2020-09-04] MEDS: INSULIN GLARGINE 100 UNITS/ML SQ SCH ×2 (07:51→20:55)
[2020-09-04] MEDS: SITAGLIPTIN PHOS 100 MG TAB PO SCH (07:51)
[2020-09-04] MEDS: MAGNESIUM OXIDE 400 MG TAB PO SCH (07:52)
[2020-09-04] MEDS: ASCORBIC ACID 500 MG TABLET PO SCH ×4 (08:22→20:57)
[2020-09-04] MEDS: APIXABAN 5 MG TABLET PO SCH ×2 (09:00→20:54)
[2020-09-04] MEDS: MULTIVIT W/ MINERAL TAB PO SCH (09:05)
--- NOTE | 2020-09-04 16:43 | P.PN ---
Subjective Date of Service: 09/04/20 Primary Care Provider: Dr. Keys Chief Complaint: COVID Pneumonia Subjective: Improving (Still with increased fatigue. Currently on 6 L per nasal cannula.) Physical Examination - Vital Signs Temperature: 96.7 F Blood Pressure: 109/67 Pulse: 66 Respirations: 20 Pulse Ox (%): 99 - Physical Exam General: Alert, Cooperative HEENT: Atraumatic Neck: Supple Respiratory: Other (On 6 L per nasal cannula) Cardiovascular: Normal pulses Neurological: Normal speech, Normal strength at 5/5 x4 extr, Normal tone, Normal affect - Studies Medications List Reviewed: Yes Assessment & Plan Discharge Plan: Home Plan to discharge in: 48 Hours Physician Review Additional Text: Assessment Bilateral COVID 19 pneumonia with hypoxia Diabetes mellitus type 2 Hypertension Hyperlipidemia Acute renal insufficiency likely mild dehydration Diarrhea Plan Bilateral COVID 19 pneumonia with hypoxia: Patient remains on 6 L per nasal cannula. Continue to increase ambulation. Encourage incentive spirometer. Continue IV steroids. Continue to wean off. Anticipate improvement over the next 48 hr. Diabetes mellitus type 2: A.c. HS Accu-Cheks, sliding scale insulin therapy in place. A1c 6.5. Patient with diabetes. Continue to adjust Lantus for better diabetic control at this time Hypertension: Continue home medication Hyperlipidemia: Continue home medication. Lipitor discontinued due to elevated liver function. Acute renal insufficiency likely mild dehydration: Encourage oral intake. Will monitor lab closely. Diarrhea: Patient on lactobacillus. C diff negative. Overall improved. Elevated liver function: Continue to monitor. Hepatitis panel pending. Lipitor and Remdesivir have been discontinued. Continue to monitor liver function. Time Spent Managing Pts Care (In Minutes): 55
[2020-09-04] MEDS: TEMAZEPAM 15 MG CAP PO SCH (20:54)
[2020-09-04] MEDS: MELATONIN 5 MG TABLET PO SCH (20:54)
[2020-09-05] MEDS: METHYLPREDNISOLONE 40 MG INJ IV SCH ×4 (00:34→23:53)
[2020-09-05 07:03] LABS: Ferritin 1439.7 ng/mL (26-388)
[2020-09-05 07:04] LABS: C-Reactive Protein < 2.90 mg/L (<3.00)
[2020-09-05] MEDS: INSULIN -REGULAR HUMAN 50 UNIT/0.5 ML ML SQ SCH ×4 (07:30→20:45)
[2020-09-05] MEDS: INSULIN GLARGINE 100 UNITS/ML SQ SCH ×2 (08:41→20:45)
[2020-09-05] MEDS: LOSARTAN POTASSIUM 50 MG TABLET PO SCH (08:41)
[2020-09-05] MEDS: FAMOTIDINE 20 MG TAB PO SCH ×2 (08:42→20:44)
[2020-09-05] MEDS: NYSTATIN 500,000 UNIT/5 ML UDC PO SCH ×4 (08:42→20:45)
[2020-09-05] MEDS: LACTOBACILLUS/ACIDOPHILUS TAB PO SCH ×3 (08:42→20:44)
[2020-09-05] MEDS: APIXABAN 5 MG TABLET PO SCH ×2 (08:42→20:44)
[2020-09-05] MEDS: SITAGLIPTIN PHOS 100 MG TAB PO SCH (08:42)
[2020-09-05] MEDS: ZINC SULFATE 220 MG CAP PO SCH (08:42)
[2020-09-05] MEDS: METOPROLOL TAR 25 MG TAB PO SCH (08:42)
[2020-09-05] MEDS: MAGNESIUM OXIDE 400 MG TAB PO SCH (08:42)
[2020-09-05] MEDS: GLUCERNA SHAKE 237 ML CAN PO SCH ×3 (09:00→20:46)
[2020-09-05] MEDS: ASCORBIC ACID 500 MG TABLET PO SCH ×3 (09:00→20:44)
[2020-09-05] MEDS: VITAMIN D 1000 UNIT TAB PO SCH (10:02)
[2020-09-05] MEDS: THIAMINE HCL 100 MG TABLET PO SCH ×2 (10:07→20:44)
[2020-09-05] MEDS: ASPIRIN EC 81 MG TAB PO SCH (10:08)
[2020-09-05] MEDS: MULTIVIT W/ MINERAL TAB PO SCH (10:19)
--- NOTE | 2020-09-05 13:13 | P.PN ---
Subjective Date of Service: 09/05/20 Primary Care Provider: Dr. Keys Chief Complaint: COVID Pneumonia Subjective: Improving Physical Examination - Vital Signs Temperature: 97.4 F Blood Pressure: 115/62 Pulse: 61 Respirations: 19 Pulse Ox (%): 93 - Physical Exam General: Alert, In no apparent distress, Cooperative HEENT: Atraumatic Neck: Supple Respiratory: Other (on 6 l) Cardiovascular: Normal pulses, Regular rate/rhythm Neurological: Normal speech, Normal strength at 5/5 x4 extr, Normal tone, Normal affect - Studies Medications List Reviewed: Yes Assessment & Plan Discharge Plan: Home Plan to discharge in: 48 Hours Physician Review Additional Text: Assessment Bilateral COVID 19 pneumonia with hypoxia Diabetes mellitus type 2 Hypertension Hyperlipidemia Acute renal insufficiency likely mild dehydration Diarrhea Plan Bilateral COVID 19 pneumonia with hypoxia: Patient is slowly improving. Encourage ambulation. Continue to wean off oxygen. Encourage incentive spirometer. Continue current medications. Inflammatory markers improving. Anticipate improvement over the next 24-48 hr. Diabetes mellitus type 2: A.c. HS Accu-Cheks, sliding scale insulin therapy in place. A1c 6.5. Patient with diabetes. Continue to adjust Lantus for better diabetic control at this time Hypertension: Continue home medication Hyperlipidemia: Continue home medication. Lipitor discontinued due to elevated liver function. Acute renal insufficiency likely mild dehydration: Encourage oral intake. Will monitor lab closely. Diarrhea: Patient on lactobacillus. C diff negative. Overall improved. Elevated liver function: Continue to monitor. Hepatitis panel pending. Lipitor and Remdesivir have been discontinued. Continue to monitor liver function. Time Spent Managing Pts Care (In Minutes): 55
[2020-09-05] MEDS: DIPHENOX/ATROP SULF 1 TAB PO PRN (17:32)
[2020-09-05] MEDS: MELATONIN 5 MG TABLET PO SCH (20:44)
[2020-09-06] MEDS: INSULIN -REGULAR HUMAN 50 UNIT/0.5 ML ML SQ SCH (07:30)
[2020-09-06 08:08] VITALS: O2SAT 95
[2020-09-06] MEDS: METOPROLOL TAR 25 MG TAB PO SCH ×2 (08:22→08:26)
[2020-09-06] MEDS: ASCORBIC ACID 500 MG TABLET PO SCH (08:22)
[2020-09-06] MEDS: THIAMINE HCL 100 MG TABLET PO SCH (08:22)
[2020-09-06] MEDS: LOSARTAN POTASSIUM 50 MG TABLET PO SCH (08:22)
[2020-09-06] MEDS: MULTIVIT W/ MINERAL TAB PO SCH (08:22)
[2020-09-06] MEDS: FAMOTIDINE 20 MG TAB PO SCH (08:23)
[2020-09-06] MEDS: VITAMIN D 1000 UNIT TAB PO SCH (08:23)
[2020-09-06] MEDS: ZINC SULFATE 220 MG CAP PO SCH (08:23)
[2020-09-06] MEDS: NYSTATIN 500,000 UNIT/5 ML UDC PO SCH (08:23)
[2020-09-06] MEDS: APIXABAN 5 MG TABLET PO SCH (08:23)
[2020-09-06] MEDS: SITAGLIPTIN PHOS 100 MG TAB PO SCH (08:23)
[2020-09-06] MEDS: LACTOBACILLUS/ACIDOPHILUS TAB PO SCH (08:23)
[2020-09-06] MEDS: MAGNESIUM OXIDE 400 MG TAB PO SCH (08:24)
[2020-09-06] MEDS: INSULIN GLARGINE 100 UNITS/ML SQ SCH (08:24)
[2020-09-06] MEDS: GLUCERNA SHAKE 237 ML CAN PO SCH (08:24)
[2020-09-06] MEDS: METHYLPREDNISOLONE 40 MG INJ IV SCH (08:41)
[2020-09-06] MEDS: ASPIRIN EC 81 MG TAB PO SCH (08:41)
--- NOTE | 2020-09-06 09:43 | P.DS ---
Admission Date: 08/23/20 Discharge Date: 09/06/20 Primary Care Provider: Dr. Keys Disposition: ROUTINE DISCHARGE Discharge Condition: GOOD Reason for Admission: COVID Pneumonia Consultations: Pulmonary-Dr. Price Procedures: CT chest: FINDINGS: The spleen is enlarged measuring 16 cm in length. Small hiatal hernia. No pericardial effusion. There are a couple of slightly prominent mediastinal lymph nodes. No evidence for thoracic aortic dissection. No pulmonary emboli are identified. There are fairly diffuse patchy groundglass infiltrates consistent with covid pneumonia. No pleural effusions. No pneumothorax. 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 There are mild degenerative changes of the left shoulder and in the spine. There is mild compression fracture deformity at T8 which appears chronic. IMPRESSION: No pulmonary emboli are identified. There are diffuse patchy groundglass infiltrates consistent with covid pneumonia. The spleen is enlarged. Follow up CXR: FINDINGS: Ncsa-edakrav-rszt-right interstitial and alveolar opacities are again noted. Slight improvement has occurred. Differential improvement is not as great as that which occurred between the September 01 and September 02 studies. Current examination has slight respiratory motion degradation artifact. Heart and vasculature are normal. No measurable pleural effusion and no pneumothorax. No acute bony abnormality seen. No acute aortic findings suspected. IMPRESSION: Continued improvement of the lung parenchymal opacification. Differential improvement is not as great as that which occurred between September 01 and September 02. Medical problem list: Dyspnea secondary to acute respiratory failure related to Bilateral COVID 19 pneumonia Diabetes mellitus type 2 [id number] Hypertension Hyperlipidemia Acute renal insufficiency likely mild dehydration Diarrhea Brief History of Present Illness: 59-year-old male with history of diabetes mellitus type 2, hypertens ion, hyperlipidemia presents the emergency department for 3 days of shortness of breath. Patient was evaluated in the emergency room found to be positive for COVID. Patient presented with hypoxia and shortness of breath. Patient was admitted for further evaluation and treatment. Hospital Course: Patient presented with dyspnea secondary to acute respiratory failure related to Bilateral COVID 19 pneumonia. His hospitalization was prolonged. Patient required oxygen. Patient was seen and evaluated by pulmonology. Patient received IV fluids, supplementation and Remdesivir. Remdesivir had to be discontinued due to elevated liver function. This improved. As the patient improved slowly, patient still requiring oxygen at discharge. Patient able to ambulate and maintain adequate oxygenation. At discharge patient currently on 4 L per nasal cannula. Patient will continue with home oxygen to maintain sats above 93%. At discharge patient will continue with prednisone 20 mg 1 pill twice daily for 7 days then 1 pill once daily for 7 days. The patient will also continue with Eliquis 5 mg 1 pill twice daily due to his risk for DVT and PE. Patient will continue with his medication for at least 2 weeks. The patient will also continue with vitamin C 500 mg 3 times a day, melatonin 5 mg 1 pill daily, vitamin-D 2000 units daily, thiamine 100 mg daily, and zinc 220 mg daily. Patient will also be provided Tessalon Perles 100 mg 3 times a day as needed for cough and Ventolin puffs 3 times a day as needed for shortness of breath. The patient will follow up with pulmonology within 1 week to follow up this hospitalization and continue his care. The patient will continue with COVID isolation guidelines. Education will be provided. Fall precautions in place. Patient may continue with walker at home. Patient with diabetes mellitus type 2 [id number]. Hemoglobin A1c 6.5. The patient did require some insulin during the course of his stay due to the patient getting IV steroids. Blood sugar stable at discharge. At discharge patient will continue with metformin 1000 mg 1 pill twice daily. Additional medication Januvia 50 mg 1 pill daily has been added. Recommend to maintain blood sugars less 140 fasting and less than 200 after meals. Recommend to monitor blood sugars at least once daily. Further adjustment in medication can be done by his PCP. Patient with hypertension. This has remained stable. At discharge patient may continue with his current medication of losartan hydrochlorothiazide 100/25 mg daily and metoprolol 25 mg daily. Recommend to maintain blood pressure less than 130/80. Further adjustment can be done by his PCP. Patient with hyperlipidemia. At discharge patient may continue with Lipitor 40 mg daily and Vascepa 1 g twice daily. Recommend to monitor liver function tests in 2-4 weeks on medication. Patient had some acute renal insufficiency likely from dehydration. Patient did receive IV fluids. Renal function stable at discharge. Patient some mild diarrhea. This has resolved. Patient may continue with probiotics 3 times a day. Vital Signs/Physical Exam: Temp Pulse Resp BP Pulse Ox 96.3 F L 59 18 120/67 95 09/06/20 08:00 09/06/20 08:00 09/06/20 08:00 09/06/20 08:00 09/06/20 08:00 General: Alert, In no apparent distress, Oriented x3, Cooperative HEENT: Atraumatic Neck: Supple Respiratory: Clear to auscultation bilaterally, Normal air movement Cardiovascular: Normal pulses, Regular rate/rhythm Gastrointestinal: Normal bowel sounds Neurological: Normal speech, Normal strength at 5/5 x4 extr, Normal tone, Normal affect Laboratory Data at Discharge: WBC 15.6 K/uL (4.3-10.9) H 09/03/20 05:56 Hgb 15.4 g/dL (13.6-17.9) 09/03/20 05:56 Hct 46.0 % (39.6-49.0) 09/03/20 05:56 Plt Count 258 K/uL (152-406) 09/03/20 05:56 PT 13.0 SECONDS (9.5-12.5) H 08/22/20 21:01 INR 1.10 08/22/20 21:01 APTT 27.8 SECONDS (24.3-36.9) 08/22/20 21:01 Sodium 137 mmol/L (136-145) 09/03/20 05:56 Potassium 5.4 mmol/L (3.5-5.1) H 09/03/20 05:56 BUN 39 mg/dL (7-18) H 09/03/20 05:56 Creatinine 1.19 mg/dL (0.55-1.3) 09/03/20 05:56 Glucose 95 mg/dL (74-106) 09/03/20 05:56 Phosphorus 4.3 mg/dL (2.5-4.9) 09/02/20 06:19 Magnesium 2.6 mg/dL (1.8-2.4) H 09/02/20 06:19 Total Bilirubin 1.1 mg/dL (0.2-1.0) H 09/03/20 05:56 AST 31 U/L (15-37) 09/03/20 05:56 ALT 133 U/L (12-78) H 09/03/20 05:56 Alkaline Phosphatase 84 U/L (45-117) 09/03/20 05:56 Home Medications: Atorvastatin Calcium [Lipitor] 40 mg PO BEDTIME 08/23/20 Icosapent Ethyl [Vascepa] 1 gm PO BID 08/23/20 Losartan/Hydrochlorothiazide [Losartan-Hctz 100-25 mg Tab] 1 each PO DAILY 08/23/20 Magnesium Oxide [Mag 0X*] 400 mg PO DAILY 08/23/20 Metformin HCl 1,000 mg PO BID 08/23/20 Metoprolol Tartrate [Lopressor*] 25 mg PO DAILY 08/23/20 Multivit-Min/FA/Lycopen/Lutein [Centrum Silver Tablet] 1 tab PO DAILY 08/23/20 Omeprazole 20 mg PO DAILY 08/23/20 Albuterol Inhaler [Ventolin Inhaler*] 2 puff IH Q6H PRN #1 hfa.aer.ad 09/06/20 Apixaban [Eliquis] 5 mg PO BID #60 tablet 09/06/20 Ascorbic Acid [Vitamin C*] 500 mg PO TID #90 tablet 09/06/20 Benzonatate [Tessalon Perle*] 100 mg PO TID PRN #15 cap 09/06/20 Cholecalciferol (Vitamin D3) [Vitamin D 1000 Iu Tab*] 2,000 unit PO DAILY #60 tab 09/06/20 Lactobacillus Acidophilus [Acidophilus Lactobacilli] 1 each PO TID #30 capsule 09/06/20 Melatonin 5 mg PO BEDTIME #30 tablet 09/06/20 Sitagliptin Phosphate [Januvia] 50 mg PO DAILY #30 tablet 09/06/20 Thiamine HCl [Vitamin B-1*] 100 mg PO BID #30 tablet 09/06/20 Zinc Sulfate [Zinc Sulfate*] 220 mg PO DAILY #30 cap 09/06/20 predniSONE [Prednisone*] 20 mg PO SEECOM #21 tab 09/06/20 New Medications: Lactobacillus Acidophilus [Acidophilus Lactobacilli] 1 each PO TID #30 capsule Apixaban [Eliquis] 5 mg PO BID #60 tablet Sitagliptin Phosphate [Januvia] 50 mg PO DAILY #30 tablet Melatonin 5 mg PO BEDTIME #30 tablet predniSONE [Prednisone*] 20 mg PO SEECOM #21 tab Benzonatate [Tessalon Perle*] 100 mg PO TID PRN #15 cap PRN Reason: Cough Albuterol Inhaler [Ventolin Inhaler*] 2 puff IH Q6H PRN #1 hfa.aer.ad PRN Reason: Shortness Of Breath Thiamine HCl [Vitamin B-1*] 100 mg PO BID #30 tablet Ascorbic Acid [Vitamin C*] 500 mg PO TID #90 tablet Cholecalciferol (Vitamin D3) [Vitamin D 1000 Iu Tab*] 2,000 unit PO DAILY #60 tab Zinc Sulfate [Zinc Sulfate*] 220 mg PO DAILY #30 cap Patient Discharge Instructions: Follow up with PCP in 1 week to follow up hospitalization. Patient presented with dyspnea secondary to acute respiratory failure related to Bilateral COVID 19 pneumonia. His hospitalization was prolonged. Patient required oxygen. Patient was seen and evaluated by pulmonology. Patient received IV fluids, supplementation and Remdesivir. Remdesivir had to be discontinued due to elevated liver function. This improved. As the patient improved slowly, patient still requiring oxygen at discharge. Patient able to ambulate and maintain adequate oxygenation. At discharge patient currently on 4 L per nasal cannula. Patient will continue with home oxygen to maintain sats above 93%. At discharge patient will continue with prednisone 20 mg 1 pill twice daily for 7 days then 1 pill once daily for 7 days. The patient will also continue with Eliquis 5 mg 1 pill twice daily due to his risk for DVT and PE. Patient will continue with his medication for at least 2 weeks. The patient will also continue with vitamin C 500 mg 3 times a day, melatonin 5 mg 1 pill daily, vitamin-D 2000 units daily, thiamine 100 mg daily, and zinc 220 mg daily. Patient will also be provided Tessalon Perles 100 mg 3 times a day as needed for cough and Ventolin puffs 3 times a day as needed for shortness of breath. The patient will follow up with pulmonology within 1 week to follow up this hospitalization and continue his care. The patient will continue with COVID isolation guidelines. Education will be provided. Fall precautions in place. Patient may continue with walker at home. Patient with diabetes mellitus type 2 [id number]. Hemoglobin A1c 6.5. The patient did require some insulin during the course of his stay due to the patient getting IV steroids. Blood sugar stable at discharge. At discharge patient will continue with metformin 1000 mg 1 pill twice daily. Additional medication Januvia 50 mg 1 pill daily has been added. Recommend to maintain blood sugars less 140 fasting and less than 200 after meals. Recommend to monitor blood sugars at least once daily. Further adjustment in medication can be done by his PCP. Patient with hypertension. This has remained stable. At discharge patient may continue with his current medication of losartan hydrochlorothiazide 100/25 mg daily and metoprolol 25 mg daily. Recommend to maintain blood pressure less than 130/80. Further adjustment can be done by his PCP. Patient with hyperlipidemia. At discharge patient may continue with Lipitor 40 mg daily and Vascepa 1 g twice daily. Recommend to monitor liver function tests in 2-4 weeks on medication. Patient had some acute renal insufficiency likely from dehydration. Patient did receive IV fluids. Renal function stable at discharge. Patient some mild diarrhea. This has resolved. Patient may continue with probiotics 3 times a day. Diet: ADA Activity: Fall precautions Followup: NONE,NONE [Primary Care Provider] - Time spent managing pt's care (in minutes): 55
[2020-09-07 21:48] VITALS: BP 155/73; TEMP 97.8
== END 2020-09-06 11:55 | disposition home or self-care (01) | DRG 177 ==
LOC: ER 20:15 → ERHOLD 08-23 01:42 → 4TH 08-23 02:22 → OBSVTOIN 08-23 13:19
PROVIDERS: ADMIT Family Medicine; ATTEND Family Medicine
PROC: 5A09357 Assistance with Respiratory Ventilation, Less than 24 Consecutive Hours, Continuous Positive Airway Pressure (ICD-10-PCS; principal; 2020-08-29)
DX: U07.1 COVID-19 (principal); J12.82 Pneumonia due to coronavirus disease 2019; J96.01 Acute respiratory failure with hypoxia; N17.9 Acute kidney failure, unspecified; E11.9 Type 2 diabetes mellitus without complications; I10 Essential (primary) hypertension; E78.5 Hyperlipidemia, unspecified; N28.9 Disorder of kidney and ureter, unspecified; E86.0 Dehydration; R19.7 Diarrhea, unspecified; R79.89 Other specified abnormal findings of blood chemistry; Z28.21 Immunization not carried out because of patient refusal
CPT/HCPCS: 0240U; 36415; 71045; 71275; 80048; 80053; 80074; 80076; 82248; 82728; 82947; 83036; 83605; 83615; 83735; 83880; 84100; 84132; 84145; 84484; 85025; 85379; 85610; 85730; 86140; 87040; 87324; 87449; 90471; 90732; 93005; 94002; 94003; 94010; 94760; 96361; 96374; 96375; 97116; 97161; 97164; 99285; J1650; J1815; J1940; J2920; J2930; J3411; J7030; J7050; Q9967